=== PATIENT | female | born 1940 | race Caucasian/White ===

== ENCOUNTER 2018-03-13 15:28 | Outpatient (CLI) | payer MEDICARE, OTHER, SELFPAY ==
[2018-03-13 17:26] LABS: Hemoglobin A1C 7.3 % (4.5-6.2)
== END 2018-03-13 15:48 ==
PROVIDERS: PCP Family Medicine; Visit Provider Family Medicine
DX: E11.9 Type 2 diabetes mellitus without complications (principal)
CPT/HCPCS: 36415; 83036

== ENCOUNTER 2018-07-24 08:47 | Outpatient (CLI) | payer MEDICARE, OTHER, SELFPAY ==
[2018-07-24 12:24] LABS: ALT 86 U/L (12-78); AST 48 U/L (15-37); Albumin 3.8 g/dL (3.4-5.0); Alkaline Phosphatase 87 U/L (46-116); Anion Gap 12.8 mmol/L (3-11); BUN 19 mg/dL (7-18); Bilirubin, Total 0.6 mg/dL (0.2-1.0); CO2 25.2 mmol/L (21.0-32.0); CREATININE 0.89 mg/dL (0.55-1.02); Calcium 9.2 mg/dL (8.5-10.1); Chloride 102 mmol/L (98-107); Glucose 341 mg/dL (70-100); Potassium 4.1 mmol/L (3.5-5.1); Sodium 140 mmol/L (136-145); TSH (W/Ref FT4) 1.86 uIU/mL (0.358-3.74); Total Protein 6.8 g/dL (6.4-8.2)
[2018-07-24 12:28] LABS: Hemoglobin A1C 7.6 % (4.5-6.2)
[2018-07-24 13:06] LABS: Iron 87 ug/dL (50-175)
[2018-07-24 13:07] LABS: Calculated LDL 137; Cholesterol 214 mg/dL (50-200); HDL Cholesterol 53 mg/dL (40-60); Triglyceride 122 mg/dL (30-150)
== END 2018-07-24 09:07 ==
PROVIDERS: PCP Family Medicine; Visit Provider Family Medicine
DX: E11.9 Type 2 diabetes mellitus without complications (principal); I10 Essential (primary) hypertension; D64.9 Anemia, unspecified
CPT/HCPCS: 36415; 80053; 80061; 83721; 83036; 83540; 84443

== ENCOUNTER 2019-03-22 01:29 | Outpatient (CLI) | payer MEDICARE, OTHER, SELFPAY ==
[2019-03-22 14:46] LABS: Hemoglobin A1C 7.7 % (3.8-5.6)
== END 2019-03-22 01:49 ==
PROVIDERS: PCP Family Medicine; Visit Provider Family Medicine
DX: E11.9 Type 2 diabetes mellitus without complications (principal)
CPT/HCPCS: 36415; 82043; 82570; 83036

== ENCOUNTER 2019-04-02 02:03 | Outpatient (CLI) | payer MEDICARE, OTHER, SELFPAY ==
--- NOTE | 2019-04-02 10:00 | DI.RAD_ITS ---
EXAM: XR HIP LT COMPLETE AP PELVIS CLINICAL HISTORY: l hip pain M25.552 PAIN LT HIP TECHNIQUE: COMPARISON: BILATERAL HIPS ADULT from 10/25/2012 FINDINGS: Three views were obtained. There is marked loss of cartilaginous joint spaces of both hips, left gre ater than right. Prominent hypertrophic acetabular and femoral head changes noted bilaterally, left greater than right. Mild DJD of SI joints noted bilaterally. Severe hypertrophic degenerative castañeda es of lower lumbar spine noted. IMPRESSION: Severe DJD left hip, moderate DJD right.
== END 2019-04-02 02:23 ==
PROVIDERS: PCP Family Medicine; Visit Provider Family Medicine
DX: M25.552 Pain in left hip (principal); M16.0 Bilateral primary osteoarthritis of hip
CPT/HCPCS: 73502

== ENCOUNTER 2019-06-21 11:52 | Outpatient (CLI) | payer MEDICARE, OTHER, SELFPAY ==
--- NOTE | 2019-06-21 10:45 | DI.RAD_ITS ---
EXAM: XR PELVIS AP CLINICAL HISTORY: ARTEMIO surgical plannaing TECHNIQUE: COMPARISON: CR XR HIP LT COMPLETE AP PELVIS from 04/02/2019 FINDINGS: AP view of both hips was obtained. There is moderate degenerative change of the right hip and severe degenerative change of the left hip with marked narrowing of the cartilaginous joint spaces left gre ater than right. Prominent hypertrophic changes noted involving the acetabulum on the left and to a lesser degree on the right. IMPRESSION:
== END 2019-06-21 12:12 ==
PROVIDERS: PCP Family Medicine; Referring Provider Family Medicine; Visit Provider Student in an Organized Health Care Education/Training Program
DX: M25.552 Pain in left hip (principal); M16.12 Unilateral primary osteoarthritis, left hip; E11.8 Type 2 diabetes mellitus with unspecified complications; I10 Essential (primary) hypertension
CPT/HCPCS: 99203; 72170

== ENCOUNTER 2019-07-17 01:23 | Outpatient (CLI) | payer MEDICARE, OTHER, SELFPAY ==
[2019-07-17 11:02] LABS: Hemoglobin A1C 6.6 % (3.8-5.6)
[2019-07-17 11:57] LABS: ALT 81 U/L (14-59); AST 47 U/L (15-37); Albumin 4.6 g/dL (3.4-5.0); Alkaline Phosphatase 74 U/L (46-116); Anion Gap 14.7 mmol/L (3-11); BUN 22 mg/dL (7-18); Bilirubin, Total 0.7 mg/dL (0.2-1.0); CO2 24.3 mmol/L (21.0-32.0); CREATININE 1.07 mg/dL (0.55-1.02); Calcium 10.1 mg/dL (8.5-10.1); Chloride 102 mmol/L (98-107); Estimated GFR 49.86 (mL/min/1.73m2); Glucose 157 mg/dL (74-106); Potassium 4.2 mmol/L (3.5-5.1); Sodium 141 mmol/L (136-145); Total Protein 7.6 g/dL (6.4-8.2)
== END 2019-07-17 01:43 ==
PROVIDERS: PCP Family Medicine; Visit Provider Family Medicine
DX: I10 Essential (primary) hypertension (principal); E11.9 Type 2 diabetes mellitus without complications
CPT/HCPCS: 36415; 80053; 83036

== ENCOUNTER 2019-10-11 01:48 | Outpatient (CLI) | payer MEDICARE, OTHER, SELFPAY ==
[2019-10-13 17:57] LABS: COVID-19 RT-PCR Result NEGATIVE (Negative)
== END 2019-10-11 02:08 ==
PROVIDERS: PCP Family Medicine; Visit Provider Student in an Organized Health Care Education/Training Program
DX: M16.12 Unilateral primary osteoarthritis, left hip (principal); Z01.818 Encounter for other preprocedural examination
CPT/HCPCS: U0003

== ENCOUNTER 2019-10-11 01:48 | Outpatient (CLI) | payer MEDICARE, OTHER, SELFPAY ==
[2019-10-11 10:40] LABS: HCT 46.1 % (36.0-46.0); HGB 15.7 g/dL (11.2-15.7); MCHC 34.1 % (32.0-36.0); MPV 9.9 fL (8.0-11.0); Platelet Count 190 10^3/uL (130-400); RBC 5.24 10^6/uL (3.93-5.22); RDW 13.5 % (11.7-14.6); RDW-SD 42.9 fL; WBC 8.04 10^3/uL (4.4-10.8)
[2019-10-11 11:10] LABS: BUN 18 mg/dL (7-18); CREATININE 0.79 mg/dL (0.55-1.02); Chloride 104 mmol/L (98-107); Glucose 152 mg/dL (74-106); Potassium 4.2 mmol/L (3.5-5.1); Sodium 140 mmol/L (136-145)
== END 2019-10-11 02:08 ==
PROVIDERS: PCP Family Medicine; Visit Provider Student in an Organized Health Care Education/Training Program
DX: E11.9 Type 2 diabetes mellitus without complications (principal); M16.12 Unilateral primary osteoarthritis, left hip
CPT/HCPCS: 36415; 80048; 85027; 86850; 86900; 86901; U0003; 83036

== ENCOUNTER 2019-10-15 06:03 | Observation (INO) | payer MEDICARE, OTHER, SELFPAY ==
[2019-10-15] VITALS (13 sets, daily range): BP systolic 84–138; BP diastolic 37–83; PULSE 57–74; RESP 11–18; TEMP 35.7–36.6; O2SAT 92–99
--- NOTE | 2019-10-15 06:45 | DI.RAD_ITS ---
EXAM: XR HIP LT IN OR CLINICAL HISTORY: Primary osteoarthritis of left hip. TECHNIQUE: 2D and realtime digital imaging was performed. COMPARISON: No exams were available for comparison FINDINGS: Fluoroscopy was provided in the OR. Hard copy images show placement of a left hip prosthesis. Please see procedure note for details. Fluoro time: 38.1 seconds RADIATION DOSE DELIVERED:
[2019-10-15] MEDS: Celecoxib 200 MG CAP 400 MG PO (06:47)
[2019-10-15] MEDS: Acetaminophen 500 MG TAB 1000 MG PO ×3 (06:47→19:34)
--- NOTE | 2019-10-15 07:00 | HPE_ITS ---
Date of service: 10/15/19 Time of Service: 07:00 Assessment and Plan Assessment and plan (1) Primary osteoarthritis of left hip: Status: Chronic Assessment and plan: Gretchen is a 79-year-old who has known left hip arthritis. She is failed conservative options left hip. She is in the office for this pathology and does have a complete history and physical dated from September 10. She has had no changes in her health since that time. She continues to have pain with the left hip. I once again reviewed the surgery and its technical features as well. I discussed the risk to include bleeding, infection, pain, stiffness, damage to nerves and vessels, damage to muscle and tendon, leg length inequality, blood clot. She would like to proceed. She has had no changes to her health to preclude surgery today. History of Present Illness History of Present Illness Chief Complaint: Left Hip DJD Narrative: Gretchen is a 79-year-old who has known left arthritis. She was seen previously in the office discussed surgery and had a preoperative history physical performed 2 days ago. Unfortunately, On evaluation she reports no changes in her history since that visit just over a month ago. She had no issues with the toe. She denies fevers or chills. She denies chest pain or shortness of breath. She treat the pain with the left hip and ambulatory activities. She also has some worsening right hip pain. She denies numbness or tingling. She denies issues with the skin overlying the left hip. Review of Systems All systems reviewed & are unremarkable except as noted in HPI and below [facility] Medical History Depressive disorder (Chronic) w/ anxiety attacks; grief-loss of partner 2000 Diabetes mellitus (Chronic) Dysphonia (Chronic 11/28/13) Essential hypertension (Chronic 11/16/12) Gastroesophageal reflux disease with esophagitis (Chronic) Hyperlipidemia (Chronic 04/05/12) Increased BMI (Chronic) Lumbago (Chronic) Non-alcoholic fatty liver disease (Chronic 01/05/05) 4 small liver cysts.; elevated LFT's 01/13 Osteoarthritis (Chronic 04/30/07) hip Sensorineural hearing loss, bilateral (Chronic 06/13/13) Varicose veins of lower extremity (Chronic) Surgical History Hx of colonoscopy (Chronic) Hx of esophagogastroduodenoscopy (Chronic) Ligation of fallopian tube Status post arthroscopy of right knee (Acute) Family History Mother , 65+ Brain cancer Breast cancer Father , 65+ Bladder cancer Maternal Grandfather , Suicide Depression Paternal Grandfather , age 80? Throat cancer Maternal Grandmother Diabetes Paternal Grandmother Stroke Son Substance abuse PAST USE Alcohol abuse Daughter Alcohol abuse Depression Social History Smoking/Tobacco Use Status: Never Alcohol Intake: current Alcohol Intake frequency: 0-2 drinks per day Alcohol type: wine Drug use: Never Substance use type: former substance user and marijuana Adopted: No Caregiver/Support person: No Household members: none Housing: house Communication Needs: Hard of Hearing and Corrective Lenses Do you need help understanding health information?: Rarely Pets and animals: Yes Pets and animals: cat(s) Sexually active: No Do you think of yourself as: straight/heterosexual Current gender identity: female What is your relationship status?: How often do you talk on the phone with friends or family?: three or more times per week How often do you get together with friends or relatives?: once per week How often do you attend anglican or orthodox services?: decline to answer Do you belong to any clubs or organized social groups?: no Panel score (0-1 are the most socially isolated patients): 1 What type of physical activity do you participate in: walking and yoga Duration: 15-30 minutes/day Frequency: 1-2 times per week Brooke/Muslim: None Special brooke needs: No Seatbelt use: always Helmet use: No Drive 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 Meds Home Medications and Allergies Home Medications Medication Instructions Recorded Confirmed Type aspirin [Ecotrin] 81 mg PO DAILY tab-cap 04/27/12 10/15/19 History calcium carbonate-vitamin D3 2 tab PO DAILY 04/27/12 10/15/19 History [Caltrate 600 + D Tablet] psyllium [Metamucil] 1 tbs PO DAILY PRN 03/17/14 10/15/19 History Onetouch Ultra Test Strips 1 strip MISCELLANEOUS DAILY #100 09/07/17 10/15/19 Clinic strip meclizine 25 mg tablet 25 mg PO TID PRN #30 tab-cap 06/17/18 10/15/19 Rx lorazepam 0.5 mg tablet 0.5 mg PO BID PRN #30 tab-cap 06/18/18 10/15/19 Rx nystatin 100,000 unit/gram topical 1 applic TP TID #60 gm 10/16/18 10/15/19 Rx powder omeprazole 20 mg capsule,delayed 20 mg PO DAILY #90 tab-cap 01/10/19 10/15/19 Rx release canagliflozin 100 mg tablet 100 mg PO QAM #90 tab 03/28/19 10/15/19 Rx mirabegron 25 mg tablet,extended 25 mg PO DAILY #90 tab 03/28/19 10/15/19 Rx release 24 hr blood sugar diagnostic #100 each 06/24/19 10/15/19 Rx lancets #100 ea 06/24/19 10/15/19 Rx bupropion HCl 300 mg 24 hr tablet, 300 mg PO DAILY #90 tab-cap 07/22/19 10/15/19 Rx extended release atenolol 25 mg tablet 25 mg PO DAILY #90 tab 08/12/19 10/15/19 Rx metformin 750 mg tablet,extended 750 mg PO DAILY #90 tab-cap 08/12/19 10/15/19 Rx release 24 hr cephalexin 500 mg capsule 500 mg PO TID 09/12/19 10/15/19 History fluconazole 150 mg tablet 150 mg PO QWEEK #12 tab 09/19/19 10/15/19 Rx losartan 100 1 tab PO DAILY #90 tab-cap 10/08/19 10/15/19 Rx mg-hydrochlorothiazide 25 mg tablet sertraline 100 mg tablet 100 mg PO DAILY #90 tab 10/08/19 10/15/19 Rx multivitamin 1 tab PO DAILY 10/10/19 10/15/19 History ibuprofen 400 mg PO Q6H PRN 10/15/19 10/15/19 History Allergies Allergy/AdvReac Type Severity Reaction Status Date / Time No Known Allergies Allergy Unverified 10/15/19 06:19 Exam Const General: cooperative, healthy appearing, comfortable and no acute distress Nutritional Appearance: average body habitus Orientation: alert, awake and oriented x3 Resp Effort & Inspection: normal respiratory effort Auscultation: clear to auscultation bilaterally Cardio Rate: regular rate Rhythm: regular rhythm Skin General skin exam: no rashes or lesions noted Other: Left hip skin fold was inspected shows no signs of infection or maceration or open lesions. Results Last Vital Signs Temp 36.1 C L 10/15/19 06:42 Pulse 70 10/15/19 06:42 Resp 16 10/15/19 06:42 BP 138/83 10/15/19 06:42 Pulse Ox 96 10/15/19 06:42
[2019-10-15] MEDS: Lactated Ringers 1,000 ML 80 ML IV ×2 (07:05→19:37)
--- NOTE | 2019-10-15 07:12 | W.PM.DS.N ---
Date of service: 10/15/19 DS: Diagnosis Discharge Diagnosis (1) Primary osteoarthritis of left hip: Status: Chronic Discharge Plan Disposition Patient Disposition: HOME Condition: Good Discharge Details Reason For Visit: L HIP TOTAL Admit Date/Time: 10/15/19 06:03 Admit Provider: Dann Martinez Attending Provider: Dann Martinez Primary Care Provider: Sandra Baldwin [facility] Hospital Course Hospital Course: Patient was admitted to the medical/surgical floor following the procedure. The surgery was tolerated well without any notable medical, surgical, or anesthetic complications. Mobilization began postoperatively. She was voiding spontaneously. Vitals were stable. Physical therapy worked with the patient and was cleared for discharge home. No acute medical issues. Pain was controlled on oral regimen. Home Meds and New Rx's Prescriptions: New celecoxib 200 mg capsule 200 mg PO BID PRN (Reason: pain) Qty: 60 RF: 1 aspirin 81 mg tablet,delayed release (DR/EC) 81 mg PO BID Qty: 60 RF: 0 acetaminophen 500 mg tablet 1,000 mg PO Q8H PRN (Reason: pain) Qty: 90 RF: 3 docusate sodium [Colace] 100 mg capsule 100 mg PO BID PRNQty: 10 RF: 0 oxycodone 5 mg tablet 2.5 - 5 mg PO Q6H PRN PRNQty: 6 RF: 0 Continued canagliflozin 100 mg tablet 100 mg PO QAM Qty: 90 RF: 5 Myrbetriq 25 mg tablet extended release 24 hr 25 mg PO DAILY Qty: 90 RF: 4 bupropion HCl 300 mg tablet extended release 24 hr 300 mg PO DAILY Qty: 90 RF: 12 calcium carbonate-vitamin D3 [Caltrate with Vitamin D3] 1 EACH tablet 2 tab PO DAILY RF: 0 Metamucil 283 GM powder 1 tbs PO DAILY PRNRF: 0 ONETOUCH ULTRA TEST STRIPS 1 EACH strip 1 strip Miscellaneous DAILY Qty: 100 RF: 3 meclizine 25 mg tablet 25 mg PO TID PRN (Reason: dizziness) Qty: 30 RF: 0 lorazepam 0.5 mg tablet 0.5 mg PO BID PRN (Reason: anxiety) Qty: 30 RF: 2 nystatin 100,000 unit/gram powder 1 applic TP TID Qty: 60 RF: 3 omeprazole 20 mg capsule,delayed release(DR/EC) 20 mg PO DAILY Qty: 90 RF: 4 (DME) lancets [OneTouch UltraSoft Lancets] Misc 1 ea Miscellaneous DAILY Qty: 100 RF: 4 (DME) Blood Glucose Test Strip See Rx Instructions .ROUTE .MEDSUPPLY Qty: 100 RF: 5 atenolol 25 mg tablet 25 mg PO DAILY Qty: 90 RF: 4 metformin 750 mg tablet extended release 24 hr 750 mg PO DAILY Qty: 90 RF: 12 fluconazole 150 mg tablet 150 mg PO QWEEK Qty: 12 RF: 2 losartan-hydrochlorothiazide [Hyzaar] 100-25 mg tablet 1 tab PO DAILY Qty: 90 RF: 3 sertraline 100 mg tablet 100 mg PO DAILY Qty: 90 RF: 4 multivitamin Tablet 1 tab PO DAILY RF: 0 Discontinued cephalexin 500 mg capsule 500 mg PO TID RF: 0 aspirin [Ecotrin Low Strength] 81 MG tablet,delayed release (DR/EC) 81 mg PO DAILY RF: 0 ibuprofen 400 mg Tablet 400 mg PO Q6H PRNRF: 0 Discharge Instructions Additional Instructions: Dr. Martinez's Total Hip Discharge Instructions Activity: The most important activity is to walk. You should try to take short walks a few times a day. You have no restrictions on movement or positioning, but do not try to force what you do. You will find some stiffness and weakness with hip flexion (lifting your knee). Do not try to strengthen this too early, continue to practice walking and stairs and this will come. - Outpatient physical therapy can be helpful to help return you to a normal gait and improve your flexibility and strength. This can start around 2 weeks. For most patients, it?s not necessary. Usually this is determined at the time of discharge or at the first post-operative visit. - You should wear the HARPREET hose on both legs for 2 weeks. You may remove those at night. These prevent blood pooling and swelling. Dressing: Keep the surgical dressing in place for at least one week, although it may stay in place untill follow-up. It may get wet after 3 days but avoid soaking the dressing. If it gets wet, just lightly pat dry. Most people prefer to cover the dressing with some ClingWrap, Saran Wrap, to keep it dry. After the first week it may be removed if desired and then replaced with light gauze and tape or nothing. It is important to always keep some gauze or the dressing between skin folds, especially when you are sitting, so the incision is not folded over on itself at the belly fold. Medications: - You should take Tylenol and an anti-inflammatory Celebrex as your primary pain control medications. If Celebrex is too expensive, or not covered, please take Ibuprofen 400-600mg every 8 hours. - You have been prescribed a stronger pain medication Oxycodone for breakthrough pain, take as needed as prescribed. You may halve this tablet. - You should continue your Omeprazole to help reduce stomach acid and reflux. - You will be taking Aspirin 81mg twice a day for DVT prevention unless instructed otherwise. - If you have constipation you should take Colace or Miralax (both [id number]). It takes most people 3-4 days to have a bowel movement. Follow-up: 2 weeks. If you have any acute concerns or questions, please do not hesitate to contact the office at [phone]. You may contact Dr. Martinez with any questions after hours through the hospital at [phone] or on his cell phone at [phone]. Referrals: Dann Martinez MD [ [facility] STAFF PHYSICIAN] - Activity:: Activity as Tolerated Equipment/Supplies:: Walker Diet:: Carb Counting Discharge Orders Discharge Orders: Discharge Order (Routine); Ordered 10/16/19 Ordered By: Dann Martinez DS: Summary Status at Discharge Functional status at discharge: uses cane/walker Overall status at discharge: patient is progressing back to baseline Mental Status: mental status grossly normal Speech and Movement: speech and movement normal Mood: congruent mood Affect: normal affect Exam Psych Mental Status: mental status grossly normal Speech and Movement: speech and movement normal Mood: congruent mood Affect: normal affect DS: Data Vitals/I&O Vitals and I&O: Vital Signs Temperature 36.1 C L 10/15/19 06:42 Pulse 70 10/15/19 06:42 Pulse Rhythm Regular 10/15/19 06:42 Respiratory Rate 16 10/15/19 06:42 Respiratory Effort 10/15/19 06:42 Respiratory Depth Normal 10/15/19 06:42 Respiratory Pattern Normal 09/08/20 06:42 Blood Pressure 138/83 10/15/19 06:42 Pulse Oximetry 96 10/15/19 06:42 Oxygen Delivery Method Room Air 10/15/19 06:42 Oxygen Flow Rate 0 10/15/19 06:42 Pain Level 5 10/15/19 06:42 Intake & Output 10/14/19 10/14/19 10/15/19 11:59 23:59 11:59 Weight 86.6 kg [facility] Medical History Depressive disorder (Chronic) w/ anxiety attacks; grief-loss of partner 2000 Diabetes mellitus (Chronic) Dysphonia (Chronic 11/28/13) Essential hypertension (Chronic 11/16/12) Gastroesophageal reflux disease with esophagitis (Chronic) Hyperlipidemia (Chronic 04/05/12) Increased BMI (Chronic) Lumbago (Chronic) Non-alcoholic fatty liver disease (Chronic 01/05/05) 4 small liver cysts.; elevated LFT's 01/13 Osteoarthritis (Chronic 04/30/07) hip Sensorineural hearing loss, bilateral (Chronic 06/13/13) Varicose veins of lower extremity (Chronic) Surgical History Hx of colonoscopy (Chronic) Hx of esophagogastroduodenoscopy (Chronic) Ligation of fallopian tube Status post arthroscopy of right knee (Acute) Family History Mother , 65+ Brain cancer Breast cancer Father , 65+ Bladder cancer Maternal Grandfather , Suicide Depression Paternal Grandfather , age 80? Throat cancer Maternal Grandmother Diabetes Paternal Grandmother Stroke Son Substance abuse PAST USE Alcohol abuse Daughter Alcohol abuse Depression Social History Smoking/Tobacco Use Status: Never Alcohol Intake: current Alcohol Intake frequency: 0-2 drinks per day Alcohol type: wine Drug use: Never Substance use type: former substance user and marijuana Adopted: No Caregiver/Support person: No Household members: none Housing: house Communication Needs: Hard of Hearing and Corrective Lenses Do you need help understanding health information?: Rarely Pets and animals: Yes Pets and animals: cat(s) Sexually active: No Do you think of yourself as: straight/heterosexual Current gender identity: female What is your relationship status?: How often do you talk on the phone with friends or family?: three or more times per week How often do you get together with friends or relatives?: once per week How often do you attend sabianism or zoroastrian services?: decline to answer Do you belong to any clubs or organized social groups?: no Panel score (0-1 are the most socially isolated patients): 1 What type of physical activity do you participate in: walking and yoga Duration: 15-30 minutes/day Frequency: 1-2 times per week Brooke/Confucianism: None Special brooke needs: No Seatbelt use: always Helmet use: No 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
[2019-10-15] MEDS: ceFAZolin 2 GM/50 ML BAG IVPB (07:45)
[2019-10-15] MEDS: Bupivacaine 0.25% Pres-Free 30 ML VIAL (08:25)
[2019-10-15] MEDS: Ketorolac 30 MG/ML VIAL (08:26)
--- NOTE | 2019-10-15 09:22 | W.PM.OP ---
Date of service: 10/15/19 Time of Service: 09:22 Operative Note Operative Note DATE OF PROCEDURE: 10/15/19 PRE-OP DIAGNOSIS: Left Hip Osteoarthritis POST-OP DIAGNOSIS: same PROCEDURE: Left Anterior Total Hip Arthroplasty SURGEON: Dann Martinez ONCOLOGY ADMIN: Sandy Thompson ANESTHESIA: spinal ESTIMATED BLOOD LOSS: 200 PATHOLOGY: none sent TOURNIQUET TIME: 0 COMPLICATIONS: None Patient was transported to: PACU Patient's condition: stable Implants: 1. Depuy Torrance Acetabular Component, 52mm 2. Depuy Acetabular Liner, [id number] 3. Depuy Corail Short Neck Femoral Stem, Size 12 4. Depuy Altrx Ceramic Femoral Head, Size 36+8.5mm Indications: I have seen Gretchen in clinic for symptoms of hip arthritis, confirmed with radiographic findings. Gretchen has exhausted nonoperative methods and was having significant limitations in daily function and desired better function and less pain. I discussed the technical details of a hip replacement. I explained the risks of the procedure to include, but not limited to, bleeding, infection, pain, stiffness, fracture, damage to nerves and vessels, damage to muscles and tendons, loosening, instability, leg length inequality, need for repeat procedure, blood clot and cardiopulmonary demise. Despite these risks, [NAME] elected to proceed. Findings: There was significant signs of arthritis throughout the hip with large, irregular femoral neck osteophytes and acetabular chondromalacia. Procedure Description: Gretchen was greeted in the preoperative holding area where the correct side was identified and marked. The consent was reviewed with the patient and signed. The history and physical was updated. All questions were answered. She was taken back to the operating room. A spinal anesthestic was then administered. The patient was placed into the supine position on the operating room table. The patient was then positioned onto the ARCH table. Both feet were wrapped with Webrill cotton wrap along with Coban. The feet were placed in specialized boots for the ARCH table, well seated within the boot and secured. SCDs were applied. The patient was then slid down onto a peroneal post and the nonoperative leg was secured in a leg gallo attached to the table. The operative side was placed into the ARCH table attachment and bed height and positioning was secured. A preoperative AP pelvis was obtained to serve as a reference for determining leg lengths. Prophylactic antibiotics in the form of Cefazolin were administered. 1g of Tranxemic Acid was given intravenously within 30 minutes of incision. The left leg was then prepped with Chloraprep and draped in a standard fashion. A second prep with Chloraprep was performed prior to placement of a shower-curtain type drape with Iodine impregnated skin protection. A timeout to confirm correct identity, side and site, procedure, allergies, anesthesia, and medical concerns was performed. An obliquely oriented incision was made starting lateral to the ASIS and running distal over the Tensor Fascia Blaire (TFL) muscle belly toward the fibular head, approximately 10cm. The skin and soft tissue was dissected sharply, through Elizabeth?s fascia, and to the fascia of the TFL. With the fascia and superior border of the IT band identified, the fascia was incised with a new knife just above any perforators from the IT band. The TFL muscle belly was bluntly dissected away from the fascia and moved laterally. The fat between TFL and rectus was identified to ensure the dissection was not within the TFL. Blunt dissection created space between abductors and the capsule and retractor was placed over the lateral femoral neck. The fibers of the rectus femoris tendon were identified and these were freed from the anterior capsule. A second cobra retractor was placed around the medial femoral neck. The TFL was further retracted laterally to show the deep fascia. Careful dissection through this layer identified three main crossing vessels of the lateral femoral circumflex. These were cauterized in multiple locations and then cut without any noticeable bleeding. The TFL was further released bluntly from the deep fascia to expose anterior hip capsule and fat The Thomas orthopaedic retractor was then placed beneath the TFL and against sartorius and medial soft tissues to protect and retract the soft tissues. A T-capsulotomy was then performed starting at the superior lateral acetabulum and moving distally to the intertrochanteric ridge. These capsular flaps were tagged with a No. 1 Ethibond and elevated from within. The capsular flaps were released to the shoulder of the lateral neck and to the lesser trochanter to give excellent visualization of the proximal femur. A neck osteotomy was performed using an oscillating saw based on preoperative templates. This cut started in the shoulder and of the lateral neck and exited medially. The saw was at all times directed medially to avoid injury to the greater trochanter. 6cm of traction was applied to the leg and the osteotomy opened. The femoral head was removed with a corkscrew, making sure to protect the TFL on its exit. This was measured on the back table to determing the starting reamer size. Portions of the rectus obscuring visualization were minimally elevated off the superior acetabulum. An anterior retractor was placed over the anterior wall between capsule and labrum and attached to the Gripper retraction system. A posterior retractor was placed similarly. This provided excellent visualization. The contents of the cotyloid fossa were removed with electrocautery and the labrum was removed with a knife. There was a notable floor osteophyte. There was significant chondromalacia of the superior acetabulum. Acetabular reaming began with a 48mm reamer. This first reaming was directed anterior to posterior and medial to get down to the true floor. This was inspected and reamed until the true floor was reached. The anterior retractor was then released and entry and exit was provided by traction on the capsular flaps. I then reamed sequentially up to a 52mm reamer where good fit was obtained. The larger reamers were oriented based on anatomical reference of the anterior and lateral mendez to ensure proper abduction and anteversion. Positioning and size was confirmed with the fluoroscopy. A 52mm Depuy Torrance acetabular component was selected. The acetabulum was reamed around the periphery with the selected acetabular size to prevent a rim fit. The deep tissues were irrigated. The acetabular component was then impacted in a position of about 40-45 degrees of abduction and 15-20 degrees of anteversion, using the patient?s anatomy as the ultimate landmark. Fluoroscopy was used to confirm this. There was excellent sales representative church furniture of the acetabular component and the inserting handle was removed. The acetabular liner, Depuy [id number] polyethylene liner, was inserted and lined up with the tines of the acetabular component. There was no soft tissue interposition. The liner was then impacted into position and confirmed to be well-seated. A portion of the diamante-articular cocktail was then injected around the acetabulum into the capsule and periosteum. This cocktail consisted of 50cc of 0.25% Bupivicaine and 20cc of Exparel, expanded to a total of 120cc. Traction was released from the femur. The leg was rotated to 120 degrees. Any remaining medial capsule was released until the lesser trochanter was easily palpable. A Le retractor was placed medially. The lateral capsule was further released into the shoulder to allow access to the greater trochanter. A Le retractor was placed over the greater trochanter which allowed the trochanter to flip in front of the capsule for excellent exposure. The leg was brought down into maximal extension and 20 degrees of adduction while ensuring there was no impingement on the acetabulum. Any remnant capsule within the trochanter was released. Piriformis and obturator externis were identified and protected. There was excellent access to the proximal femur. The lateral neck remnant was removed with a rongeur. A blunt canal probe was used to identify the canal and trajectory for later broaching. A box osteotome initiated the broach course. A small curved rasp and a curved curette were used to work laterally. Broaching then began with a size 8 Corail broach. This was inserted manually around the trochanter and into the canal before mallet blows. The broach was seated to the neck cut level based on the neck cut and the preoperative template. Sequential broaching was continued with the KochAbo pneumatic broaching device until a tight fit was obtained with good rotational control of the femur. A trial standard short neck was inserted along with a +5 trial head. The leg was brought out of extension and adduction and then reduced with traction and internal rotation. The leg was stable anteriorly in a position of 30 degrees of extension and 90 degrees of external rotation. Fluoroscopy was used to ensure there was no fracture and the stem was seated well. Leg lengths were checked with an AP pelvis and pelvic reference points. Adku navigation system was used to confirm appropriate positioning and leg length and offset. There was a slight under recreation of offset and leg length, so I proceeded with a +8.5 head. Once content with the desired offset and leg lengths, the leg was brought back into extension, external rotation and adduction. The periosteum and surrounding tissue was injected with remaining portion of the diamante-articular cocktail. The proximal femur was irrigated as well as the deep tissues. The Depuy Corail standard short neck collared stem, size 12, was then manually inserted into the proximal femur making sure to control rotation. It was then malleted into position with light blows, giving breaks to allow bone expansion and decrease risk of fracture. The selected Depuy Altrx Ceramic Head, size 36+8.5mm, was then placed onto the clean and dry trunnion and secured with impaction onto the tapered fit. The leg was brought back out of extension and adduction and reduced with traction and internal rotation. Stability was confirmed with no shuck at 90 degrees of external rotation and 30 degrees of extension. No impingement through range of motion arc. Final x-ray images were obtained with fluoroscopy to confirm adequate positioning and no intraoperative fracture. The deep tissues were thoroughly irrigated with Irrisept chlorhexadine solution. The second dose of TXA 1g was administered intravenously.The capsule was then reapproximated with the previously placed Ethibond sutures. The TFL fascia was finally closed with a No. 2 Stratafix, barbed suture. Deep tissues were then reapproximated with 0 Vicryl and a running 2-0 Vicryl. The skin was closed with a running 4-0 Monocryl in a subcuticular fashion. This was reinforced with skin glue. A Mepilex silver dressing was applied. At the end of the case, all counts were correct. Gretchen was transferred to the hospital bed without difficulty and suffering no apparent complication. Gretchen has a good prognosis. Physical therapy will start today and without restrictions, weight-bearing as tolerated. Aspirin 81mg BID will be used for DVT prophylaxis.
[2019-10-15] MEDS: Lactated Ringers 1,000 ML 30 ML IV (09:54)
--- NOTE | 2019-10-15 11:30 | PT.INIE ---
Date of service: 10/15/19 Time of Service: 11:30 PT Notes Visit Reasons: L HIP TOTAL Physical Therapy Inpatient Initial Evaluation Date: 10/15/2019 Referring Doctor: Dann Martinez MD PT Orders: PT CONSULT: Status post Ortho surgery. Status post left ARTEMIO Precautions: Fall. Standard. WBAT on left LE. Patient Profile/Admitting Diagnosis: Gretchen is a 79-year-old female with primary unilateral osteoarthritis of the left hip and is status post left total hip arthroplasty on postoperative day 0. PMHX: Medical History Depressive disorder (Chronic) w/ anxiety attacks; grief-loss of partner 2000 Diabetes mellitus (Chronic) Dysphonia (Chronic 11/28/13) Essential hypertension (Chronic 11/16/12) Gastroesophageal reflux disease with esophagitis (Chronic) Hyperlipidemia (Chronic 04/05/12) Increased BMI (Chronic) Lumbago (Chronic) Non-alcoholic fatty liver disease (Chronic 01/05/05) 4 small liver cysts.; elevated LFT's 01/13 Osteoarthritis (Chronic 04/30/07) hip Sensorineural hearing loss, bilateral (Chronic 06/13/13) Varicose veins of lower extremity (Chronic) Surgical History Hx of colonoscopy (Chronic) Hx of esophagogastroduodenoscopy (Chronic) Ligation of fallopian tube Status post arthroscopy of right knee (Acute) Social History/Home Situation: Lives alone in a private home with 1 step to enter without a rail. Has a flight of steps to the second floor of her house and another flight to the cellar. She states today on the main floor of the house as she recovers and will have the help of her relatives who live across from her for anything that she needs. Equipment Owned/DME: None Subjective: Reports minimal discomfort in the left hip with bed mobility. Complained of being clammy and dizzy upon sitting up and standing up from edge of bed for mobility assessment. Objective: General Observation: IV in the right UE. Mepilex Ag over surgical incision. Bilateral TEDS to legs. Mental Status: Alert and oriented times four 1/10 in the left hip Pain: 1/10 in the L hip with movement Vital Signs: After standing up 84/30 4 mmHg, 52 bpm, and 94% on room air ROM: Right Upper Extremity: Shoulder Flexion WFL. Shoulder abduction WFL. Elbow flexion WFL. Wrist flexion WFL. Opening and closing of hand WFL. Left Upper Extremity: Shoulder Flexion WFL. Shoulder abduction WFL. Elbow flexion WFL. Wrist flexion WFL. Opening and closing of hand WFL. Right Lower Extremity: Hip flexion WFL. Hip abduction WFL. Knee flexion WFL. Ankle dorsiflexion WFL. Ankle plantarflexion WFL. Left Lower Extremity: Hip flexion WFL. Hip abduction WFL. Knee flexion WFL. Ankle dorsiflexion WFL. Ankle plantarflexion WFL. Strength: Right Upper Extremity: Shoulder flexors 5/5. Shoulder abductors 5/5. Elbow flexors 5/5. Elbow extensors 5/5. Signal And Communications Maintainer strong. Left Upper Extremity: Shoulder flexors 5/5. Shoulder abductors 5/5. Elbow flexors 5/5. Elbow extensors 5/5. Signal And Communications Maintainer strong. Right Lower Extremity: Hip flexors 4/5. Hip abductors 4/5. Knee flexors 5/5. Knee extensors 4/5. Ankle dorsiflexors 5/5. Ankle plantarflexors 5/5. Left Lower Extremity:Hip flexors 5/5. Hip abductors 5/5. Knee flexors 5/5. Knee extensors 5/5. Ankle dorsiflexors 5/5. Ankle plantarflexors 5/5. Sensation: Intact as to pain and pressure on bilateral lower extremities. Bed Mobility/Transfers: Supine to sit standby assist Sit to supine standby assist Sit to stand contact-guard assist Stand to sit contact-guard assist Bed to chair deferred due to hypotensive episode. Will assess in the next session. Chair to bed deferred m due to hypotensive episode. Will assess in the next session. Gait: Deferred due to hypotensive episode. Will assess in the next session. Balance: Static Sitting: Normal Dynamic Sitting: Normal Static Standing: Fair Dynamic Standing: Unable to assess Special Tests: Mobility Limitations Standardized Measure [facility] AM-PAC 6 clicks Basic Mobility Inpatient Short Form: Raw Score: 1365% deficit CMS Score: 65% deficit Informed Consent/Education: Patient instructed in purpose of PT consult and plan of care. Assessment: Gretchen demonstrates significant functional mobility decline requiring the use of a front wheeled walker for all mobility ADL performance, difficulty with walking, impairment in balance, increased risk for falls due to postoperative status. Gretchen is a 79-year-old female with primary unilateral osteoarthritis of the left hip and is status post left total hip arthroplasty on postoperative day 0. Patient presents with clinical signs and symptoms consistent with current/admitting diagnoses that have resulted to mobility limitations, gait instability, generalized weakness, and impairment of motor control as demonstrated by the following impairment level findings: 1. Decreased strength to left hip major muscle groups 2. Impaired sitting/standing balance 3. Impaired activity tolerance 4. Hypotensive episode due to mobility assessment Impairments are contributing to the following functional limitations: 1. Dependent bed mobility skills 2. Increased dependence with transfers 3. Inability to safely ambulate without assistive device and physical assistance 4. Increase completion time for mobility ADL performance 5. Increased fall risk 6. Inability to negotiate steps alone safely Patient is assessed as a complexity based on the following: History: 79-year-old female with impairment level findings, functional limitations, and past medical history as indicated above Examination: Demonstrable impairment in strength, balance, and mobility level with underlying impairments and functional limitations as documented above Presentation:Evolving Decision Makin moderate complexity Goals: Goals X 1 day 1. Supine-Sit independent 2. Sit-Supine independent 3. Sit-Stand independent 4. Stand-Sit independent 5. Bed-Chair independent 6. Chair-Bed independent 7. Independent gait on level surface with use of least restrictive device for at least 300 feet without report of pain nor dyspnea 8. Independent stair negotiation while holding onto bilateral rails for at least 10 steps without report of pain nor dyspnea 9. Independent with home exercise program 10. Good static and dynamic standing balance/tolerance Plan of Care/Treatment Plan: 1-2x/day for 1 day. Plan of care has been reviewed with the SLASHER MACHINE OPERATOR providing the service under Physical Therapy direction. Initiate Physical Therapy intervention for strengthening, bed mobility, transfers, gait, stairs, balance training, use of assistive device. DISCHARGE RECOMMENDATIONS: Home when medically cleared by orthopedic surgeon outpatient PT services as recommended in order to regain prior independent mobility level. TREATMENT CODE/TIME: 75521 x 30 minutes beginning at 11:30 AM. Thank you for the opportunity to participate in the care of this patient. Barbara Garnica PT, DPT, CLT [facility], [place]
--- NOTE | 2019-10-15 12:10 | NUR.NOTE ---
Nursing Note: 10/15/2019 12:10 Physical therapist Barbara Garnica reported to authoring nurse that when she tried to help patient out of bed, patient became clammy and feeling like she was going to pass out. Physical therapist assisted patient back to supine position in bed. Vital signs are: Temp 36.3 C, Pulse 63, BP 90/62 manual, O2 92 on room air. Charge nurse notified of situation and vital signs. Nurse encouraged patient to practice deep breathing and continue drinking water, nurse will continue to monitor and reassess as necessary. Patient is currently sitting up in bed eating lunch.
--- NOTE | 2019-10-15 14:50 | PTTR_ITS ---
Date of service: 10/15/19 Time of Service: 14:50 PT Notes Visit Reasons: L HIP TOTAL Physical Therapy Inpatient Initial Evaluation Date: 10/15/2019 Precautions: Fall. Standard. WBAT on left LE. Subjective: Denies dizziness and lightheadedness throughout the afternoon session. Objective: General Observation: IV in the right UE. Mepilex Ag over surgical incision. Bilateral TEDS to legs. Mental Status: Alert and oriented times four 1/10 in the left hip Pain: 1/10 in the L hip with movement Bed Mobility/Transfers: Supine to sit standby assist Sit to supine standby assist Sit to stand standby assist Stand to sit standby assist Bed to chair standby assist Gait: 80 feet using front wheeled walker with WBAT on the left LE requiring only contact-guard assist and wheelchair follow of PT. Step-to gait pattern with decreased iesha and report of 3?4/10 in the left hip that subsided with rest. No complaints of dizziness nor clamminess throughout. Blood pressure with sitting is 110-54 mmHg heart rate 70 bpm and oxygen saturation of 94% on room air. THERA EX: Tolerated seated level exercises consisting of unilateral knee-chest x10, gluteal sets x10, quadriceps sets x10, and ankle pumping x 20 with good response. Balance: Static Sitting: Normal Dynamic Sitting: Normal Static Standing: Fair Dynamic Standing: Unable to assess Assessment: Gretchen performed significantly better in the second session with good tolerance to ambulation distance without any report of dizziness nor lightheadedness. She will contnue to benefit from skilled services to faciliate a smoother transition to home. Plan of Care/Treatment Plan: 1-2x/day for 1 day. Plan of care has been reviewed with the GUARD LIEUTENANT providing the service under Physical Therapy direction. Initiate Physical Therapy intervention for strengthening, bed mobility, transfers, gait, stairs, balance training, use of assistive device. DISCHARGE RECOMMENDATIONS: Home when medically cleared by orthopedic surgeo. Outpatient PT services as recommended in order to regain prior independent mobility level. TREATMENT CODE/TIME: 01285 x 15 minutes, 88800 x 15 minutes beginning at 14:50 PM.
[2019-10-15] MEDS: ceFAZolin 1 GM/50 ML BAG IVPB ×2 (15:50→23:49)
[2019-10-15] MEDS: Celecoxib 200 MG CAP PO (19:33)
[2019-10-15] MEDS: Aspirin E.C. 81 MG TABEC PO (19:33)
[2019-10-16] MEDS: Losartan 50 MG TAB 100 MG PO (07:48)
[2019-10-16] MEDS: buPROPion-XL 150 MG TABCR 300 MG PO (07:48)
[2019-10-16] MEDS: Celecoxib 200 MG CAP PO (07:48)
[2019-10-16] MEDS: Aspirin E.C. 81 MG TABEC PO (07:48)
[2019-10-16] MEDS: Atenolol 25 MG TAB PO (07:48)
[2019-10-16] MEDS: Multivitamin TAB 1 TAB PO (07:48)
[2019-10-16] MEDS: Omeprazole 20 MG CAPCR PO (07:48)
[2019-10-16] MEDS: ceFAZolin 1 GM/50 ML BAG IVPB (07:49)
[2019-10-16] MEDS: Mirabegron 25 MG TABCR PO (07:49)
[2019-10-16] MEDS: Sertraline 50 MG TAB 100 MG PO (07:49)
[2019-10-16] MEDS: Acetaminophen 500 MG TAB 1000 MG PO (07:49)
[2019-10-16 08:06] VITALS: BP 132/69; PULSE 77; RESP 18; TEMP 36.7; O2SAT 96
[2019-10-16] MEDS: Insulin Aspart 300 UNITS/3 ML PEN SC (08:21)
--- NOTE | 2019-10-16 08:37 | PT.INTREAT ---
Date of service: 10/16/19 Time of Service: 08:37 PT Notes Visit Reasons: L HIP TOTAL Inpatient Physical Therapy Treatment Note [facility] Date: 10/16/2019 PRECAUTIONS: Fall, WBAT L SUBJECTIVE: Gretchen states that she is feeling a little more sore today, although she states that she feels ready to be discharged to home today. OBJECTIVE: PAIN: Patient c/o L hip discomfort with ther ex and gait training BED MOBILITY/TRANSFERS Supine-sit: I with HOB flat Sit-supine: I with HOB flat Sit-stand: S Stand-sit: S Bed-Chair: S Chair-bed: S GAIT Assistive Device: FWW Weight bearing: WBAT L Assist: S Distance: 250' Deviation: Step-through gait pattern following instruction THEREX: Patient completed a LE strengthening program, in a seated position, as per flow sheet. Patient requires verbal cueing for proper exercise performance. STAIRS: Up/down 3x4 and 2x6 using B rails and a step-to pattern with supervision ASSESSMENT: Patient tolerated session with minimal complaint of L hip discomfort with ther ex and gait training. She was able to tolerate the addition of stair training. She would benefit from continued LE strengthening and gait training to return to baseline level of function at an independent level. PLAN: Continue with global strengthening and gait training TREATMENT CODE/TIME: 30 minutes; 02237, 37411
--- NOTE | 2019-10-16 09:29 | PDOC.CMIN ---
- If Service Date Differs Date of service: 10/16/19 Time of Service: 09:29 Care Management Initial Assess REASON FOR HOSPITALIZATION:: Primary osteoarthritis of left hip PAST MEDICAL HISTORY/PAST SURGICAL HISTORY:: Medical History . Depressive disorder (Chronic). w/ anxiety attacks; grief-loss of partner 2000. Diabetes mellitus (Chronic). Dysphonia (Chronic 11/28/13). Essential hypertension (Chronic 11/16/12). Gastroesophageal reflux disease with esophagitis (Chronic). Hyperlipidemia (Chronic 04/05/12). Increased BMI (Chronic). Lumbago (Chronic). Non-alcoholic fatty liver disease (Chronic 01/05/05). 4 small liver cysts.; elevated LFT's 01/13. Osteoarthritis (Chronic 04/30/07). hip. Sensorineural hearing loss, bilateral (Chronic 06/13/13). Varicose veins of lower extremity (Chronic). Surgical History . Hx of colonoscopy (Chronic). Hx of esophagogastroduodenoscopy (Chronic). Ligation of fallopian tube. Status post arthroscopy of right knee (Acute) PREVIOUS FUNCTIONAL STATUS/SOCIAL/FAMILY SUPPORTS:: Gretchen lives alone in a single family home in [place], [place]. She has 2 children and 4 grandchildren who are very supportive. Her son Kesha lives just up the road from her and is very helpful. Gretchen is independent at baseline and continues to drive. CURRENT FUNCTIONAL STATUS:: Gretchen was sitting up in a chair when CM met with her. She was pleasant and engaged readily with CM. Gretchen stated that she will be discharged later today and the she plans to have outpatient PT when able. She shared that she feels that she has been getting weeaker with the lack of exercise during the Covid pandemic and can really benefit from the therapy. ADVANCE DIRECTIVES:: None on file Has patient been provided with info about the portal/API?: Yes Did the patient sign up for the portal?: Yes (recently) CODE STATUS:: Full Code INSURANCE COVERAGE / FINANCIAL ISSUES:: Medicare. [employer] U IDs only CURRENT HOME/COMMUNITY SERVICES/EQUIPMENT:: Gretchen has a walker and a cane at home PRIMARY CARE PHYSICIAN:: Sandra Baldwin POTENTIAL DISCHARGE NEEDS:: Follow up with PCP and discharge plan of care PATIENT/FAMILY EDUCATION NEEDS:: Discharge plan, limitations, follow up plan, Ask Me Three TRANSPORTATION:: via private vehicle with family PLAN:: Gretchen will be discharged home with no new home services. She will follow up with her surgeon, PCP and discharge plan of care. Gretchen will likely have outpatient PT when she is surgically ready per her provider and will transport via private vehicle with family.
--- NOTE | 2019-10-17 08:16 | INDS_ITS ---
Date of service: 10/17/19 PT Notes Visit Reasons: L HIP TOTAL Inpatient Physical Therapy Discharge Summary Dates: 10/17/2019 Dates of Service: 10/15/2019 through 10/16/2019 This is a clinical summary of care provided on the duration of dates listed above. No charge was made in the completion of this documentation. Precautions: Fall. Standard. WBAT on left LE. Patient Profile/Admitting Diagnosis: Gretchen is a 79-year-old female with primary unilateral osteoarthritis of the left hip and is status post left total hip arthroplasty on postoperative day 1. PMHX: Medical History Depressive disorder (Chronic) w/ anxiety attacks; grief-loss of partner 2000 Diabetes mellitus (Chronic) Dysphonia (Chronic 11/28/13) Essential hypertension (Chronic 11/16/12) Gastroesophageal reflux disease with esophagitis (Chronic) Hyperlipidemia (Chronic 04/05/12) Increased BMI (Chronic) Lumbago (Chronic) Non-alcoholic fatty liver disease (Chronic 01/05/05) 4 small liver cysts.; elevated LFT's 01/13 Osteoarthritis (Chronic 04/30/07) hip Sensorineural hearing loss, bilateral (Chronic 06/13/13) Varicose veins of lower extremity (Chronic) Surgical History Hx of colonoscopy (Chronic) Hx of esophagogastroduodenoscopy (Chronic) Ligation of fallopian tube Status post arthroscopy of right knee (Acute) Social History/Home Situation: Lives alone in a private home with 1 step to enter without a rail. Has a flight of steps to the second floor of her house and another flight to the cellar. She states today on the main floor of the house as she recovers and will have the help of her relatives who live across from her for anything that she needs. Equipment Owned/DME: None Subjective: NT. See most recent ENVIRONMENTAL SCIENCE TECHNICIAN notes. Objective: General Observation: NT. See most recent ENVIRONMENTAL SCIENCE TECHNICIAN notes. Mental Status: NT. See most recent ENVIRONMENTAL SCIENCE TECHNICIAN notes. Pain: NT. See most recent ENVIRONMENTAL SCIENCE TECHNICIAN notes. ROM: Right Upper Extremity: Shoulder Flexion WFL. Shoulder abduction WFL. Elbow flexion WFL. Wrist flexion WFL. Opening and closing of hand WFL. Left Upper Extremity: Shoulder Flexion WFL. Shoulder abduction WFL. Elbow flexion WFL. Wrist flexion WFL. Opening and closing of hand WFL. Right Lower Extremity: Hip flexion WFL. Hip abduction WFL. Knee flexion WFL. Ankle dorsiflexion WFL. Ankle plantarflexion WFL. Left Lower Extremity: Hip flexion WFL. Hip abduction WFL. Knee flexion WFL. Ankle dorsiflexion WFL. Ankle plantarflexion WFL. Strength: Right Upper Extremity: Shoulder flexors 5/5. Shoulder abductors 5/5. Elbow flexors 5/5. Elbow extensors 5/5. Pension Fund Manager strong. Left Upper Extremity: Shoulder flexors 5/5. Shoulder abductors 5/5. Elbow flexors 5/5. Elbow extensors 5/5. Pension Fund Manager strong. Right Lower Extremity: Hip flexors 4/5. Hip abductors 4/5. Knee flexors 5/5. Knee extensors 4/5. Ankle dorsiflexors 5/5. Ankle plantarflexors 5/5. Left Lower Extremity:Hip flexors 5/5. Hip abductors 5/5. Knee flexors 5/5. Knee extensors 5/5. Ankle dorsiflexors 5/5. Ankle plantarflexors 5/5. Sensation: Intact as to pain and pressure on bilateral lower extremities. Bed Mobility/Transfers: Supine to sit independent Sit to supine independent Sit to stand supervision Stand to sit supervision Bed to chair supervision Chair to bed supervision Gait: 250 feet with FWW with supervision with step-through gait pattern. Up and down three 4-inch steps and two 6-inch steps while holding onto B rails with step-to gait pattern with supervision. Balance: Static Sitting: Normal Dynamic Sitting: Normal Static Standing: Fair Dynamic Standing: Fair Assessment: Gretchen demonstrates significant functional improvements for this episode of care. She has remaining functional mobility decline requiring the use of a front wheeled walker for all mobility ADL performance, difficulty with walking, impairment in balance, increased risk for falls due to postoperative status. Gretchen is a 79-year-old female with primary unilateral osteoarthritis of the left hip and is status post left total hip arthroplasty on postoperative day 1. Goals: Goals X 1 day 1. Supine-Sit independent MET 2. Sit-Supine independent MET 3. Sit-Stand independent NOT MET 4. Stand-Sit independent NOT MET 5. Bed-Chair independent NOT MET 6. Chair-Bed independent NOT MET 7. Independent gait on level surface with use of least restrictive device for at least 300 feet without report of pain nor dyspnea NOT MET 8. Independent stair negotiation while holding onto bilateral rails for at least 10 steps without report of pain nor dyspnea NOT MET 9. Independent with home exercise program NOT MET 10. Good static and dynamic standing balance/tolerance NOT MET DISCHARGE RECOMMENDATIONS: Home when medically cleared by orthopedic surgeon outpatient PT services as recommended in order to regain prior independent mobility level. TREATMENT CODE/TIME: [place] Thank you for the opportunity to participate in the care of this patient. Barbara Garnica PT, DPT, CLT [facility] [place], [place]
== END 2019-10-16 11:13 | disposition home or self-care (01) ==
LOC: PDS 10:06 → MS 10:09
PROVIDERS: Admitting Provider Student in an Organized Health Care Education/Training Program; PCP Family Medicine; Visit Provider Student in an Organized Health Care Education/Training Program
PROC: 0SRB04A Replacement of Left Hip Joint with Ceramic on Polyethylene Synthetic Substitute, Uncemented, Open Approach (ICD-10-PCS; CPT 27130; principal; 2019-10-15 07:30)
DX: M16.12 Unilateral primary osteoarthritis, left hip (principal); M25.552 Pain in left hip; Z96.642 Presence of left artificial hip joint; E11.9 Type 2 diabetes mellitus without complications; I10 Essential (primary) hypertension; K21.9 Gastro-esophageal reflux disease without esophagitis
CPT/HCPCS: 27130; 20985; C1776; 97110; 97162; 97530; NC; 73501; 94640; G0378; J0690; J1885; J2001; J3010

== ENCOUNTER 2019-10-25 10:09 | Outpatient (CLI) | payer MEDICARE, OTHER, SELFPAY ==
--- NOTE | 2019-10-25 09:45 | DI.RAD_ITS ---
EXAM: XR HIP LT COMPLETE AP PELVIS CLINICAL HISTORY: L ARTEMIO TECHNIQUE: COMPARISON: CR XR PELVIS AP from 06/21/2019 FINDINGS: Two views were obtained. There is a total hip joint replacement in position left. The components ap pear well seated. Moderate degenerative changes of the right hip noted as well. IMPRESSION: THR in place left. RADIATION DOSE DELIVERED: Total DLP
== END 2019-10-25 10:29 ==
PROVIDERS: PCP Family Medicine; Referring Provider Family Medicine; Visit Provider Physician Assistant
DX: Z96.642 Presence of left artificial hip joint (principal)
CPT/HCPCS: 73502

== ENCOUNTER → 2019-11-22 11:29 | Outpatient (BNVA) | payer MEDICARE, OTHER, SELFPAY | PROVIDERS: PCP Family Medicine; Referring Provider Family Medicine; Visit Provider Student in an Organized Health Care Education/Training Program | DX: Z96.642 Presence of left artificial hip joint (principal); Z47.1 Aftercare following joint replacement surgery ==

== ENCOUNTER 2019-12-05 01:27 | Outpatient (CLI) | payer MEDICARE, OTHER, SELFPAY ==
--- NOTE | 2019-12-05 07:15 | DI.RAD_ITS ---
EXAM: XR CHEST 2V PA LATERAL CLINICAL HISTORY: dyspnea,R06.00 TECHNIQUE: 2D digital imaging was performed. COMPARISON: CR CHEST 2 VIEWS PA,LAT from 03/13/2014 FINDINGS: The heart is not enlarged. The lungs are clear and well expanded. No pleural effusion seen. Mediastin al contours appear intact. IMPRESSION: Normal chest. RADIATION DOSE DELIVERED: Total DLP
== END 2019-12-05 01:47 ==
PROVIDERS: PCP Family Medicine; Visit Provider Nurse Practitioner Family
DX: R06.00 Dyspnea, unspecified (principal)
CPT/HCPCS: 36415; 80048; U0003; 71046; 85025

== ENCOUNTER 2019-12-05 07:53 | Outpatient (CLI) | payer MEDICARE, OTHER, SELFPAY ==
[2019-12-05 10:03] LABS: Abs Immature Grans 0.02 10^3/uL (0.0-0.06); Absolute Eosinophil Count 0.25 10^3/uL (0.0-0.7); Absolute Lymphocyte Count 3.17 10^3/uL (1.2-3.4); Absolute Monocyte Count 0.58 10^3/uL (0.1-0.8); Absolute Neutrophil Count 4.98 10^3/uL (1.2-6.7); Basophils % 1.1; Eosinophils % 2.7; HCT 48.1 % (36.0-46.0); Immature Grans % 0.2; Lymphocytes % 34.8; MCH 29.7 pg (27.0-33.0); MCHC 33.3 % (32.0-36.0); MCV 89.2 fL (80-95); MPV 9.8 fL (8.0-11.0); Monocytes % 6.4; Neutrophils % 54.8; Nucleated RBC 0 %; Platelet Count 214 10^3/uL (130-400); RBC 5.39 10^6/uL (3.93-5.22); RDW 13.6 % (11.7-14.6); RDW-SD 44.1 fL
[2019-12-05 10:12] LABS: Anion Gap 7.9 mmol/L (3-11); BUN 23 mg/dL (7-18); CO2 28.1 mmol/L (21.0-32.0); CREATININE 0.83 mg/dL (0.55-1.02); Calcium 9.6 mg/dL (8.5-10.1); Chloride 101 mmol/L (98-107); Glucose 189 mg/dL (74-106); Potassium 4.4 mmol/L (3.5-5.1); Sodium 137 mmol/L (136-145)
[2019-12-09 22:35] LABS: Patient Race White; SARS-CoV-2 RNA Undetected (Undetected); SARS-CoV-2 Specimen Source Nasal
== END 2019-12-05 08:13 ==
PROVIDERS: PCP Family Medicine; Visit Provider Nurse Practitioner Family
DX: R06.00 Dyspnea, unspecified (principal)
CPT/HCPCS: 36415; 80048; U0003; 85025

== ENCOUNTER 2020-03-25 03:19 | Outpatient (CLI) | payer MEDICARE, OTHER, SELFPAY ==
[2020-03-25 13:05] LABS: Hemoglobin A1C 5.9 % (<5.7)
[2020-03-25 14:47] LABS: COMMENT (LAB VIEW ONLY) 36.67 mg/dL
== END 2020-03-25 03:20 | disposition home or self-care (01) ==
LOC: LBO 03:19
PROVIDERS: PCP Family Medicine; Visit Provider Family Medicine
DX: E11.9 Type 2 diabetes mellitus without complications (principal); I10 Essential (primary) hypertension
CPT/HCPCS: 36415; 82043; 82570; 83036

== ENCOUNTER 2020-03-31 13:01 | Outpatient (CLI) | payer MEDICARE, OTHER, SELFPAY ==
--- NOTE | 2020-03-31 13:00 | RT.EKG_ITS ---
APPROVED REPORT Exam: Resting ECG Patient Location: O HR:72 bpm ECG Measurements Heart Rate 72 AXIS NM 165 P 75 QRSd 80 QRS -12 QT 376 T 56 QTc 412 Conclusion Sinus rhythm...normal P axis, V-rate 60- [address] depression, lateral leads...ST <-0.07mV, I aVL V5 V6
== END 2020-03-31 13:02 | disposition home or self-care (01) ==
LOC: DI.CM 13:02
PROVIDERS: PCP Family Medicine; Visit Provider Family Medicine
DX: Z01.818 Encounter for other preprocedural examination (principal)
CPT/HCPCS: 93010

== ENCOUNTER 2020-04-06 10:29 | Day surgery (SDC) | payer MEDICARE, OTHER, SELFPAY ==
[2020-04-06 10:56] VITALS: BP 128/76; PULSE 82; RESP 18; TEMP 36.1; O2SAT 94
[2020-04-06] MEDS: Tropicam./Phenyleph. (1/2.5%) 5 ML BTL OD ×3 (11:02→11:13)
[2020-04-06] MEDS: Tetracaine 0.5% 4 ML BTL OD (11:54)
[2020-04-06] MEDS: Lidocaine 2% Jelly 6 ML SYR (11:55)
[2020-04-06] MEDS: Balanced Salt Soln.-PLUS 500 ML BAG (11:58)
[2020-04-06] MEDS: Duovisc Viscoelastic System EACH 1 EACH (11:58)
[2020-04-06] MEDS: Povidone-Iodine Ophth 30 ML BTL (11:59)
[2020-04-06] MEDS: Lidocaine 1% Pres-Free 5 ML VIAL (11:59)
--- NOTE | 2020-04-06 12:17 | W.PM.DSUDISC ---
Discharge Plan Disposition Patient Disposition: HOME Condition: Good Discharge Details Attending Provider: Tripp Russell Primary Care Provider: Sandra Baldwin Home Meds and New Rx's Prescriptions: No Action nystatin 100,000 unit/gram powder 1 applic TP TID PRNRF: 0 bupropion HCl 300 mg tablet extended release 24 hr 300 mg PO DAILY Qty: 90 RF: 12 canagliflozin 100 mg tablet 100 mg PO QAM Qty: 90 RF: 5 Myrbetriq 25 mg tablet extended release 24 hr 25 mg PO DAILY Qty: 90 RF: 4 aspirin 81 mg tablet,delayed release (DR/EC) 81 mg PO DAILY RF: 0 calcium carbonate-vitamin D3 [Caltrate with Vitamin D3] 1 EACH tablet 2 tab PO DAILY RF: 0 Metamucil 283 GM powder 1 tbs PO DAILY PRNRF: 0 ONETOUCH ULTRA TEST STRIPS 1 EACH strip 1 strip Miscellaneous DAILY Qty: 100 RF: 3 meclizine 25 mg tablet 25 mg PO TID PRN (Reason: dizziness) Qty: 30 RF: 0 (DME) lancets [OneTouch UltraSoft Lancets] Misc 1 ea Miscellaneous DAILY Qty: 100 RF: 4 (DME) Blood Glucose Test Strip See Rx Instructions .ROUTE .MEDSUPPLY Qty: 100 RF: 5 atenolol 25 mg tablet 25 mg PO DAILY Qty: 90 RF: 4 fluconazole 150 mg tablet 150 mg PO QWEEK Qty: 12 RF: 2 sertraline 100 mg tablet 100 mg PO DAILY Qty: 90 RF: 4 metformin 1,000 mg tablet extended release 24hr 1,000 mg PO DAILY Qty: 90 RF: 4 losartan-hydrochlorothiazide [Hyzaar] 100-25 mg tablet 1 tab PO DAILY Qty: 90 RF: 3 omeprazole 20 mg capsule,delayed release(DR/EC) 20 mg PO DAILY Qty: 90 RF: 4 lorazepam 0.5 mg tablet 0.5 mg PO BID PRN (Reason: anxiety) Qty: 30 RF: 2 multivitamin Tablet 1 tab PO DAILY RF: 0 acetaminophen 500 mg tablet 1,000 mg PO Q8H PRN (Reason: pain) Qty: 90 RF: 3 Discharge Instructions Stand Alone Forms: Post-op Topical Cataract, Press Ganey (DSU) Discharge Orders Discharge Orders: Discharge Order (Routine); Ordered 04/06/20 Ordered By: Tripp Russell DS: Diagnosis Discharge Diagnosis (1) Nuclear sclerotic cataract of right eye: Status: Resolved (2) Cortical cataract of right eye: Status: Resolved
--- NOTE | 2020-04-06 12:18 | ROE_ITS ---
Date of service: 04/06/20 Time of Service: 12:18 Operative Note Operative Note DATE OF PROCEDURE: 04/06/20 PRE-OP DIAGNOSIS: Nuclear/cortical cataract, right eye POST-OP DIAGNOSIS: same PROCEDURE: Cataract extraction using phacoemulsification with intraocular lens implant, right eye SURGEON: Tripp Russell Refer to Anesthesia Record ESTIMATED BLOOD LOSS: 0 PATHOLOGY: none sent COMPLICATIONS: None Patient was transported to: same day Patient's condition: stable Implants: Juan [employer] Juan Vision / [employer] Tecnis [id number] intraocular lens Indications: Progressive decreased vision due to cataract, right eye Procedure Description: CATARACT SURGERY OPERATIVE REPORT PREOPERATIVE DIAGNOSIS: Nuclear/cortical cataract, right eye POSTOPERATIVE DIAGNOSIS: Same OPERATION: Cataract extraction using phacoemulsification with posterior chamber intraocular lens implant, right eye. IOL: IOL Packer Dried Beef/Model: J&J Vision / TIRSO Tecnis ZCB00 IOL Power: + 14.50 diopters IOL Serial Number: [id number] Optic Diameter: 6.0mm Haptic/Overall Diameter: 13.0mm PHACO INFO: [employer] X[employer]urion Vision System with OZil and Active Fluidics Cumulative Dispersed Energy (CDE): 6.14 seconds SURGEON: Tripp Russell MD, ABBEY ANESTHESIA: Monitored Anesthesia Care (MAC), with local sub-tenon's anesthetic infiltration COMPLICATIONS: None SPECIMENS: None INDICATIONS FOR PROCEDURE: The patient is a 79-year-old lady who presented with complaints of progressive decreased vision in her right eyes. She is noted to have a significant nuclear/cortical cataract in the right eye. The option of cataract surgery was offered to the patient and she wished to proceed. Of note, she also has a history of 4th nerve palsy. The option of cataract surgery was offered to the patient and she wished to proceed. She understands that cataract surgery will not eliminate her diplopia postoperatively. PROCEDURE: The correct surgical eye was identified and marked as the right eye and the pupil was dilated in the preoperative area using mydriatics and cycloplegics. The dilated pupil size was 6.0 mm. She elected to proceed without sedation. The patient was brought to the operating room where cardiopulmonary monitoring was instituted and surgical time-out was performed, confirming the correct operative eye and IOL power. Topical anesthesia was administered and ophthalmic povidone-iodine 5% was instilled into the conjunctival fornices. Lidocaine gel was applied to the cornea and the diamante-ocular area was prepped with Betadine 10% solution and draped in the usual sterile fashion for intraocular surgery, including an aperture drape. A Tegaderm transparent film dressing was cut in half and used to cover the lashes and lid margins. Care was taken to sequester the lashes and lid margins under the Tegaderm dressing. A lid speculum was placed between the lids of the operative eye and the Candace-Safia operating microscope was maneuvered into position. Maykel scissors were then used to make a conjunctival buttonhole approximately 6mm posterior to the limbus in the inferonasal quadrant. Blunt dissection was carried out to expose bare sclera, and a blunt-tipped sub-tenon?s anesthesia cannula was introduced and passed posteriorly along the globe where non- preserved plain lidocaine was injected into posterior sub-Tenon?s space. A sideport knife was used to make a paracentesis port inferiortemporally. Intraocular phenylephrine/lidocaine was injected into the anterior chamber. The anterior chamber was then filled with viscoelastic. A 2.4mm keratome knife was used to create a half-thickness groove at the limbus and then to construct a three-plane near-clear corneal tunnel extending 2.0mm into clear cornea in the superiortemporal position. . A flap was raised on the anterior capsule and capsulorhexis forceps were used to complete a continuous curvilinear capsulorhexis of 5.0 mm. Balanced salt solution was then used to perform cortical cleaving hydrodissection and nuclear hydrodelineation until the lens could be freely rotated within the capsular bag. The lens nucleus was then disassembled and removed within the capsular bag and iris plane using phacoemulsification. Residual cortical material was removed using the I/A handpiece. The posterior capsule was carefully polished to remove as much residual lens epithelial cells as safely possible. The capsular bag was then inflated and the anterior chamber deepened with viscoelastic. The lens implant described above was inserted into the capsular bag using the TIRSO [place] Injector. A Kuglen hook was used to dial the IOL into position. Residual viscoelastic was then removed first from posterior to the IOL, then from the anterior chamber using the I/A handpiece. The lens implant was noted to center nicely within the capsular bag. The incisions were stromally hydrated, and the anterior chamber was reformed using BSS. Then 0.5cc of moxifloxacin 1.0mg/ml were injected into the capsular bag and anterior chamber. The incisions were checked with a Weck spear and found to be secure. Several drops of ophthalmic povidone-iodine 5% were then applied to the eye followed by two drops of Imprimis combination prednisolone/moxifloxacin/nepafenac solution. The drapes were removed and a clear plastic protective eye shield was placed over the eye. The patient was then returned to Same Day Surgery in stable condition.
== END 2020-04-06 12:38 | disposition home or self-care (01) ==
PROVIDERS: PCP Family Medicine; Visit Provider Ophthalmology
PROC: (CPT 66984; principal; 2020-04-06 13:30)
DX: H25.11 Age-related nuclear cataract, right eye (principal); H25.011 Cortical age-related cataract, right eye; H49.10 Fourth [trochlear] nerve palsy, unspecified eye
CPT/HCPCS: 66984; V2632

== ENCOUNTER 2020-04-20 10:26 | Day surgery (SDC) | payer MEDICARE, OTHER, SELFPAY ==
[2020-04-20 10:40] VITALS: BP 119/73; PULSE 56; RESP 16; TEMP 36.2; O2SAT 95
[2020-04-20] MEDS: Tropicam./Phenyleph. (1/2.5%) 5 ML BTL OS ×3 (10:48→11:01)
[2020-04-20] MEDS: Tetracaine 0.5% 4 ML BTL OS (11:54)
[2020-04-20] MEDS: Povidone-Iodine Ophth 30 ML BTL (11:54)
[2020-04-20] MEDS: Lidocaine 2% Jelly 6 ML SYR (11:55)
[2020-04-20] MEDS: Lidocaine 1% Pres-Free 5 ML VIAL (11:59)
[2020-04-20] MEDS: Balanced Salt Soln.-PLUS 500 ML BAG (12:01)
[2020-04-20] MEDS: Duovisc Viscoelastic System EACH 1 EACH (12:04)
--- NOTE | 2020-04-20 12:20 | W.PM.DSUDISC ---
Discharge Plan Disposition Patient Disposition: HOME Condition: Good Discharge Details Attending Provider: Tripp Russell Primary Care Provider: Sandra Baldwin Home Meds and New Rx's Prescriptions: No Action nystatin 100,000 unit/gram powder 1 applic TP TID PRNRF: 0 bupropion HCl 300 mg tablet extended release 24 hr 300 mg PO DAILY Qty: 90 RF: 12 canagliflozin 100 mg tablet 100 mg PO QAM Qty: 90 RF: 5 Myrbetriq 25 mg tablet extended release 24 hr 25 mg PO DAILY Qty: 90 RF: 4 aspirin 81 mg tablet,delayed release (DR/EC) 81 mg PO DAILY RF: 0 calcium carbonate-vitamin D3 [Caltrate with Vitamin D3] 1 EACH tablet 2 tab PO DAILY RF: 0 Metamucil 283 GM powder 1 tbs PO DAILY PRNRF: 0 ONETOUCH ULTRA TEST STRIPS 1 EACH strip 1 strip Miscellaneous DAILY Qty: 100 RF: 3 meclizine 25 mg tablet 25 mg PO TID PRN (Reason: dizziness) Qty: 30 RF: 0 (DME) lancets [OneTouch UltraSoft Lancets] Misc 1 ea Miscellaneous DAILY Qty: 100 RF: 4 (DME) Blood Glucose Test Strip See Rx Instructions .ROUTE .MEDSUPPLY Qty: 100 RF: 5 atenolol 25 mg tablet 25 mg PO DAILY Qty: 90 RF: 4 fluconazole 150 mg tablet 150 mg PO QWEEK Qty: 12 RF: 2 sertraline 100 mg tablet 100 mg PO DAILY Qty: 90 RF: 4 metformin 1,000 mg tablet extended release 24hr 1,000 mg PO DAILY Qty: 90 RF: 4 losartan-hydrochlorothiazide [Hyzaar] 100-25 mg tablet 1 tab PO DAILY Qty: 90 RF: 3 omeprazole 20 mg capsule,delayed release(DR/EC) 20 mg PO DAILY Qty: 90 RF: 4 lorazepam 0.5 mg tablet 0.5 mg PO BID PRN (Reason: anxiety) Qty: 30 RF: 2 multivitamin Tablet 1 tab PO DAILY RF: 0 acetaminophen 500 mg tablet 1,000 mg PO Q8H PRN (Reason: pain) Qty: 90 RF: 3 Discharge Instructions Stand Alone Forms: Post-op Topical Cataract, Press Ganey (DSU) Discharge Orders Discharge Orders: Discharge Order (Routine); Ordered 04/20/20 Ordered By: Tripp Russell DS: Diagnosis Discharge Diagnosis (1) Nuclear sclerotic cataract of left eye: Status: Resolved (2) Cortical cataract of left eye: Status: Resolved
--- NOTE | 2020-04-20 12:21 | ROE_ITS ---
Date of service: 04/20/20 Time of Service: 12:22 Operative Note Operative Note DATE OF PROCEDURE: 04/20/20 PRE-OP DIAGNOSIS: Nuclear/cortical cataract, left eye POST-OP DIAGNOSIS: same PROCEDURE: Cataract extraction using phacoemulsification with intraocular lens implant, left eye SURGEON: Tripp Russell ANESTHESIA TYPE: Local By Surgeon and MAC Refer to Anesthesia Record PATHOLOGY: none sent COMPLICATIONS: None Patient was transported to: same day Patient's condition: stable Implants: [employer] / [employer] Tecnis [id number] Indications: Progressive decreased vision due to cataract, left eye Procedure Description: CATARACT SURGERY OPERATIVE REPORT PREOPERATIVE DIAGNOSIS: Nuclear/cortical cataract, left eye POSTOPERATIVE DIAGNOSIS: Same OPERATION: Cataract extraction using phacoemulsification with posterior chamber intraocular lens implant, left eye. IOL: IOL Low Pressure Boiler Operator/Model: J&J Vision / TIRSO Tecnis ZCB00 IOL Power: + 13.5 diopters IOL Serial Number: [id number] Optic Diameter: 6.0mm Haptic/Overall Diameter: 13.0mm PHACO INFO: [employer] Summit[employer]urion Vision System with OZil and Active Fluidics Cumulative Dispersed Energy (CDE): 11.92 seconds SURGEON: Tripp Russell MD, ABBEY ANESTHESIA: Monitored Anesthesia Care (MAC), with local sub-tenon's anesthetic infiltration COMPLICATIONS: None SPECIMENS: None INDICATIONS FOR PROCEDURE: The patient is a 79-year old lady with history of diminished visual acuity in both eyes secondary to development of bilateral nuclear and cortical cataract. She has already undergone cataract surgery in her right eye and is doing well postoperatively. She now presents for cataract surgery in the left eye. PROCEDURE: The correct surgical eye was identified and marked as the left eye and the pupil was dilated in the preoperative area using mydriatics and cycloplegics. The dilated pupil size was 6.0 mm. The patient elected to proceed without oral sedation. The patient was brought to the operating room where cardiopulmonary monitoring was instituted and surgical time-out was performed, confirming the correct operative eye and IOL power. Topical anesthesia was administered and ophthalmic povidone-iodine 5% was instilled into the conjunctival fornices. Lidocaine gel was applied to the cornea and the diamante-ocular area was prepped with Betadine 10% solution and draped in the usual sterile fashion for intraocular surgery, including an aperture drape. A Tegaderm transparent film dressing was cut in half and used to cover the lashes and lid margins. Care was taken to sequester the lashes and lid margins under the Tegaderm dressing. A lid speculum was placed between the lids of the operative eye and the Candace-Safia operating microscope was maneuvered into position. Maykel scissors were then used to make a conjunctival buttonhole approximately 6mm posterior to the limbus in the inferonasal quadrant. Blunt dissection was carried out to expose bare sclera, and a blunt-tipped sub-tenon?s anesthesia cannula was introduced and passed posteriorly along the globe where non- preserved plain lidocaine was injected into posterior sub-Tenon?s space. A sideport knife was used to make a paracentesis port superior/superiortemporally. Intraocular phenylephrine/lidocaine was injected into the anterior chamber. The anterior chamber was then filled with viscoelastic. A 2.4mm keratome knife was used to create a half-thickness groove at the limbus and then to construct a three-plane near-clear corneal tunnel extending 2.0mm into clear cornea in the temporal position. . A flap was raised on the anterior capsule and capsulorhexis forceps were used to complete a continuous curvilinear capsulorhexis of 5.0 mm. Balanced salt solution was then used to perform cortical cleaving hydrodissection and nuclear hydrodelineation until the lens could be freely rotated within the capsular bag. The lens nucleus was then disassembled and removed within the capsular bag and iris plane using phacoemulsification. Residual cortical material was removed using the 45-degree angled silicone I/A tip with 0.3mm port. The posterior capsule was carefully polished to remove as much residual lens epithelial cells as safely possible. The capsular bag was then inflated and the anterior chamber deepened with viscoelastic. The lens implant described above was inserted into the capsular bag using the TIRSO [place] Injector. A Kuglen hook was used to dial the IOL into position. Residual viscoelastic was then removed first from posterior to the IOL, then from the anterior chamber using the I/A handpiece. The lens implant was noted to center nicely within the capsular bag. The incisions were stromally hydrated, and the anterior chamber was reformed using BSS. Then 0.5cc of moxifloxacin 1.0mg/ml were injected into the capsular bag and anterior chamber. The incisions were checked with a Weck spear and found to be secure. Several drops of ophthalmic povidone-iodine 5% were then applied to the eye followed by two drops of Imprimis combination prednisolone/moxifloxacin/nepafenac solution. The drapes were removed and a clear plastic protective eye shield was placed over the eye. The patient was then returned to Same Day Surgery in stable condition.
== END 2020-04-20 12:35 | disposition home or self-care (01) ==
PROVIDERS: PCP Family Medicine; Visit Provider Ophthalmology
PROC: (CPT 66984; principal; 2020-04-20 13:30)
DX: H25.12 Age-related nuclear cataract, left eye (principal); E11.9 Type 2 diabetes mellitus without complications; K21.9 Gastro-esophageal reflux disease without esophagitis; E78.5 Hyperlipidemia, unspecified; I10 Essential (primary) hypertension
CPT/HCPCS: 66984; V2632

== ENCOUNTER 2020-08-19 02:30 | Outpatient (CLI) | payer MEDICARE, OTHER, SELFPAY ==
--- NOTE | 2020-08-19 | DI.DEXA_ITS ---
Exam(s) XR DEXA BONE DENSITY W/WO PHILIPPE EXAM: XR DEXA BONE DENSITY W/WO PHILIPPE CLINICAL HISTORY: OSTEOPOROSIS, M81.0 TECHNIQUE: Vigster C densitometer COMPARISON: DEXA scan 2005 FINDINGS: Lateral view of the thoracic and lumbar spine shows no evidence of compression fractures. Bone mineral density measurements of the lumbar spine correspond to a total T-score of -0.1, in the n ormal range. This represents an 8.6 percent increase when compared with 2005. Findings may be secon kaleb to worsening degenerative disc changes. The right hip was scanned due to presence of left hip prosthesis. Bone mineral density measurements of the right hip correspond to a total T-score of -1.1 . The femoral neck T-score is -0.8. The fin dings are consistent with osteopenia. The right forearm bone mineral density measurements correspond to a T-score of the distal 3rd of -1.1 , consistent with mild osteopenia. The forearm was not analyzed in 2005.. IMPRESSION: Normal bone mineral density of the lumbar spine. Osteopenia of the left hip and left forearm.
== END 2020-08-19 02:50 ==
PROVIDERS: PCP Family Medicine; Visit Provider Family Medicine
DX: M85.89 Other specified disorders of bone density and structure, multiple sites (principal); M81.0 Age-related osteoporosis without current pathological fracture
CPT/HCPCS: 77080

== ENCOUNTER 2020-10-26 09:41 | Outpatient (CLI) | payer MEDICARE, OTHER, SELFPAY ==
--- NOTE | 2020-10-26 09:15 | DI.RAD_ITS ---
Exam(s) XR HIP PELVIS ADULT BL EXAM: XR HIP PELVIS ADULT BL CLINICAL HISTORY: s/p left ARTEMIO; right hip pain. TECHNIQUE: 2D digital imaging was performed. COMPARISON: CR XR DEXA BONE DENSITY W/WO PHILIPPE from 08/19/2020 FINDINGS: Five views of the pelvis and both hips reveal satisfactory position alignment of the components of th e left hip prosthesis with no evidence of fracture or loosening. Moderate-advanced osteoarthritic de generative changes are noted in the opposite-right hip with moderate-advanced joint space narrowing a nd marginal osteophytes at the femoral head level. No lytic osseous lesions. Visualized sacroiliac joints appear unremarkable. IMPRESSION: DATA REPOSITORY: RADIATION DOSE DELIVERED:
== END 2020-10-26 09:42 | disposition home or self-care (01) ==
LOC: DIORS 09:41
PROVIDERS: PCP Family Medicine; Referring Provider Family Medicine; Visit Provider Student in an Organized Health Care Education/Training Program
DX: M25.551 Pain in right hip (principal); Z47.1 Aftercare following joint replacement surgery; Z96.642 Presence of left artificial hip joint; M16.11 Unilateral primary osteoarthritis, right hip
CPT/HCPCS: 73521; 99213

== ENCOUNTER 2020-11-25 03:47 | Outpatient (CLI) | payer MEDICARE, OTHER, SELFPAY ==
[2020-11-25 10:03] LABS: Hemoglobin A1C 5.8 % (<5.7)
== END 2020-11-25 03:48 | disposition home or self-care (01) ==
LOC: LBO 03:47
PROVIDERS: PCP Family Medicine; Visit Provider Family Medicine
DX: E11.9 Type 2 diabetes mellitus without complications (principal)
CPT/HCPCS: 36415; 83036

== ENCOUNTER → 2020-12-23 13:03 | Outpatient (BNVA) | payer MEDICARE, OTHER, SELFPAY | PROVIDERS: PCP Family Medicine; Referring Provider Family Medicine | DX: Z01.818 Encounter for other preprocedural examination (principal); M16.11 Unilateral primary osteoarthritis, right hip; E11.9 Type 2 diabetes mellitus without complications ==

== ENCOUNTER 2021-01-04 02:08 | Outpatient (CLI) | payer MEDICARE, OTHER, SELFPAY ==
[2021-01-04 09:56] LABS: HCT 46.2 % (36.0-46.0); HGB 15.6 g/dL (11.2-15.7); MCH 30.2 pg (27.0-33.0); MCHC 33.8 % (32.0-36.0); MCV 89.4 fL (80-95); MPV 9.8 fL (8.0-11.0); Platelet Count 175 10^3/uL (130-400); RBC 5.17 10^6/uL (3.93-5.22); RDW-SD 46.3 fL; WBC 9.25 10^3/uL (4.4-10.8)
[2021-01-04 11:01] LABS: Anion Gap 9.3 mmol/L (3-11); BUN 19 mg/dL (7-18); CO2 28.7 mmol/L (21.0-32.0); CREATININE 0.8 mg/dL (0.55-1.02); Calcium 9.2 mg/dL (8.5-10.1); Chloride 103 mmol/L (98-107); Glucose 134 mg/dL (74-106); Potassium 4.2 mmol/L (3.5-5.1); Sodium 141 mmol/L (136-145)
== END 2021-01-04 02:09 | disposition home or self-care (01) ==
LOC: LBO 02:09
PROVIDERS: PCP Family Medicine; Visit Provider Student in an Organized Health Care Education/Training Program
DX: M16.11 Unilateral primary osteoarthritis, right hip (principal); Z01.818 Encounter for other preprocedural examination
CPT/HCPCS: 36415; 80048; 85027; 86850; 86900; 86901; 87635

== ENCOUNTER 2021-01-04 02:45 | Outpatient (CLI) | payer MEDICARE, OTHER, SELFPAY ==
[2021-01-04 10:59] LABS: Source Nasal/Nares
[2021-01-04 14:01] LABS: COVID-19 PCR Negative (Negative)
== END 2021-01-04 02:46 | disposition home or self-care (01) ==
LOC: LBO 02:46
PROVIDERS: PCP Family Medicine; Visit Provider Student in an Organized Health Care Education/Training Program
DX: Z20.822 Contact with and (suspected) exposure to COVID-19 (principal)
CPT/HCPCS: 87635

== ENCOUNTER 2021-01-06 07:16 | Day surgery (SDC) | payer MEDICARE, OTHER, SELFPAY ==
[2021-01-06] VITALS (11 sets, daily range): BP systolic 101–133; BP diastolic 44–70; PULSE 59–66; RESP 10–16; TEMP 36.3–36.6; O2SAT 94–96; BMI 28.9
--- NOTE | 2021-01-06 06:42 | W.ANESPRE ---
General Info Date of Service Date Performed: 01/06/21 Height: 5 ft 9 in Weight: 88.904 kg Body Mass Index (BMI): 28.9 Surgical Procedure: Operation Date: 01/06/21 10:35 Proposed Procedures Side Surgeon p Hip Total Hip Anterior Right Dann Martinez MD Meds Allergies and Home Medications Allergies Allergy/AdvReac Type Severity Reaction Status Date / Time No Known Allergies Allergy Verified 01/06/21 07:47 Home Medication Medication Instructions Recorded calcium carbonate-vitamin D3 2 tab PO DAILY 04/27/12 [Caltrate with Vitamin D3] Metamucil 1 tbs PO DAILY PRN 03/17/14 meclizine 25 mg tablet 25 mg PO TID PRN #30 tab-cap 06/17/18 blood sugar diagnostic #100 each 06/24/19 lancets #100 ea 06/24/19 multivitamin 1 tab PO DAILY 10/10/19 losartan 100 1 tab PO DAILY #90 tab-cap 02/17/20 mg-hydrochlorothiazide 25 mg tablet omeprazole 20 mg capsule,delayed 20 mg PO DAILY #90 tab-cap 02/19/20 release lorazepam 0.5 mg tablet 0.5 mg PO BID PRN #30 tab-cap 02/21/20 nystatin 100,000 unit/gram topical 1 applic TP TID PRN gm 03/31/20 powder atenolol 25 mg tablet 25 mg PO DAILY #90 tab 10/20/20 bupropion HCl 300 mg 24 hr tablet, 300 mg PO DAILY #90 tab-cap 10/20/20 extended release fluconazole 150 mg tablet 150 mg PO QWEEK #12 tab 10/20/20 metformin 1,000 mg tablet,extended 1,000 mg PO DAILY #90 tab 10/20/20 release 24hr sertraline 100 mg tablet 100 mg PO DAILY #90 tab 10/20/20 acetaminophen 1,000 mg PO Q8H PRN #90 tab 01/06/21 aspirin 81 mg PO BID 30 Days #60 tab 01/06/21 celecoxib [Celebrex] 200 mg PO BID #30 cap 01/06/21 docusate sodium [Colace] 100 mg PO BID #30 cap 01/06/21 oxycodone 2.5 - 5 mg PO Q6H PRN #12 tab 01/06/21 Current Visit Medications: Current Medications Generic Name Dose Route Start Last Admin Trade Name Paras PRN Reason Stop Dose Admin Acetaminophen 1,000 mg 01/06/21 06:00 Acetaminophen 500 Mg Tab PO 01/06/21 16:00 PREOP BYRON Celecoxib 400 mg 01/06/21 06:00 Celecoxib 200 Mg Cap PO 01/06/21 16:00 PREOP BYRON Tranexamic Acid 1,000 mg/ 60 mls @ 360 mls/hr 01/06/21 06:00 Sodium Chloride IV 01/06/21 16:00 PREOP BYRON Ringer's Solution 1,000 mls @ 80 mls/hr 01/06/21 06:00 IV 02/04/21 23:59 INFUSION BYRON Cefazolin Sodium/Dextrose 2 gm in 50 mls @ 100 mls/hr 01/06/21 06:00 Ancef Duplex IVPB 02/04/21 23:59 PREOP BYRON IV Miscellaneous Supplies 1 each 01/06/21 06:00 Iv Access IV 02/04/21 23:59 DIRECTED BYRON Sodium Chloride 0 ml 01/06/21 06:00 Normal Saline Flush 10 Ml Syr IV 02/04/21 23:59 PRN PRN Sodium Chloride 0 ml 01/06/21 06:00 Normal Saline 10 Ml Vial IJ 02/04/21 23:59 DIRECTED PRN Sterile Water 0 ml 01/06/21 06:00 Water,Injection,Sterile 10 Ml Vial IJ 02/04/21 23:59 DIRECTED PRN PFSH Active Problems Active Problems: Problem Status Onset Code Advance care planning Z71.89 Degenerative joint disease of right hip M16.11 Balance disorder R26.89 Ingrown nail 03/29/16 L60.0 Dysphonia 11/28/13 R49.0 Hyperlipidemia 04/05/12 E78.5 Depressive disorder F32.9 Diabetes mellitus E11.9 Essential hypertension 11/16/12 I10 Gastroesophageal reflux disease with esophagitis K21.0 Increased BMI R63.8 Lumbago M54.5 Non-alcoholic fatty liver disease 01/05/05 K76.0 Sensorineural hearing loss, bilateral 06/13/13 H90.3 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 Medical History Active Problem List Varicose veins of lower extremity (Chronic) Sensorineural hearing loss, bilateral (Chronic 06/13/13) Non-alcoholic fatty liver disease (Chronic 01/05/05) Lumbago (Chronic) Increased BMI (Chronic) Gastroesophageal reflux disease with esophagitis (Chronic) Essential hypertension (Chronic 11/16/12) Diabetes mellitus (Chronic) Depressive disorder (Chronic) Hyperlipidemia (Chronic 04/05/12) Dysphonia (Chronic 11/28/13) Balance disorder (Acute) Degenerative joint disease of right hip (Chronic) Advance care planning (Acute) Medical History Bloating symptom (05/08/17) Degenerative joint disease of right knee previously treated with injections Surgical History Surgical History (Updated 01/06/21 @ 07:47 by Ramiro Tracy) History of total left hip replacement (10/15/19) Hx of cataract surgery s/p bilateral cataract extractions Hx of colonoscopy Hx of esophagogastroduodenoscopy Hx of tonsillectomy Ligation of fallopian tube Status post arthroscopy of right knee Tobacco Smoking/Tobacco Use Status: Never Passive smoking exposure: Yes Second hand exposure: Yes Alcohol Alcohol Intake: current Alcohol intake frequency: 0-2 drinks per day Alcohol type: wine Substance Use Substance use: Never Substance use type: does not use Vital Signs and Lab Results Vital Signs Most Recent Vital Signs in EMR: Temp Pulse Resp BP Pulse Ox 36.4 C L 66 16 133/70 96 01/06/21 07:53 01/06/21 07:53 01/06/21 07:53 01/06/21 07:53 01/06/21 07:53 Lab Results Blood Type / Crossmatch: Patient ABO/Rh O Positive 01/06/21 07:38 01/06/21 Antibody Screen NEGATIVE 01/06/21 07:38 01/06/21 Complete Blood Count: White Blood Count 9.25 10^3/uL (4.4-10.8) 01/04/21 09:50 01/04/21 Red Blood Count 5.17 10^6/uL (3.93-5.22) 01/04/21 09:50 01/04/21 Hemoglobin 15.6 g/dL (11.2-15.7) 01/04/21 09:50 01/04/21 Hematocrit 46.2 % (36.0-46.0) H 01/04/21 09:50 01/04/21 Platelet Count 175 10^3/uL (130-400) 01/04/21 09:50 01/04/21 Complete Metabolic Panel: Sodium Level 141 mmol/L (136-145) 01/04/21 09:50 01/04/21 Potassium Level 4.2 mmol/L (3.5-5.1) 01/04/21 09:50 01/04/21 Chloride Level 103 mmol/L (98-107) 01/04/21 09:50 01/04/21 Carbon Dioxide Level 28.7 mmol/L (21.0-32.0) 01/04/21 09:50 01/04/21 Blood Urea Nitrogen 19 mg/dL (7-18) H 01/04/21 09:50 01/04/21 Creatinine 0.8 mg/dL (0.55-1.02) 01/04/21 09:50 01/04/21 Estimated GFR/1.73 m2 >= 60.00 (mL/min/1.73m2) 01/04/21 09:50 01/04/21 Calcium Level 9.2 mg/dL (8.5-10.1) 01/04/21 09:50 01/04/21 Glucose Level 134 mg/dL (74-106) H 01/04/21 09:50 01/04/21 Liver Function Panel: No Data to Display Coagulation Panel: No Data to Display Cardiac Panel: No Data to Display Arterial Blood Gas: No Data to Display Venous Blood Gas: No Data to Display Pancreas Panel: No Data to Display Thyroid Panel: No Data to Display Infectious Disease: Coronavirus (COVID-19)(PCR) Negative (Negative) 01/04/21 10:22 01/04/21 Coronavirus 2019 Source Nasal/Nares 01/04/21 10:22 01/04/21 Blood Cultures: No Data to Display Toxicology Panel: No Data to Display Imaging and Studies Imaging and Studies EKG Summary: 03/2020: sinus rhythm. borderline ST depression lateral leads. Echocardiogram Summary: 2018: mild LVH, hyperdynamic, LVEF 65-60%, normal RVFxn. Anesthesia Assessment and Plan Anesthesia History Personal History: No History of Anesthesia Complications Family History: No Family History of Anesthesia Complications Exercise Tolerance Exercise Tolerance: Metabolic Equivalents>4 Pertinent Negatives Pertinent Negatives: No Symptoms of GERD Cardiac & Pulmonary Exam Cardiac Exam: Normal S1/S2 Heart Sounds Pulmonary Exam: Clear Bilateral Breath Sounds Implantable Cardiac Device Does patient have a Pacemaker or an ICD?: No Airway Exam Known Difficult Airway: No Mallampati Class: 1 Mouth Opening: Normal (> 3cm) Thyromental Distance: Greater than 3 cm Neck Range of Motion: Full ROM Neck Circumference: Normal Teeth Condition: Normal Dentition ASA Classification ASA Score: ASA 2 Emergency Case?: No NPO Status NPO Status: NPO Clears >2 hours, Solids >8 hours Anesthesia Plan Resuscitation Status: Full Code Anesthesia Technique: Spinal Anesthesia Airway Planned: Natural Airway Monitors Used: Standard Monitors Preoperative Comments:: 80 yo female for right ARTEMIO. Sig PMHx: DM (metformin, 11/26 A1c 5.8%), HTN (atenolol, losartan, HCTZ), GERD (omeprazole), anxiety (lorazepam) never smoker, occ EtOH. Previous Anes: spinal for ARTEMIO without issues (1.2 mL 0.75% w dextrose, 20 mcg fent).
--- NOTE | 2021-01-06 07:32 | W.PM.DS.N ---
Documented by User: Altagracia Ren 01/06/21 09:18 DS: Diagnosis Discharge Diagnosis (1) Degenerative joint disease of right hip: Status: Chronic Discharge Plan Disposition Patient Disposition: HOME Condition: Good Discharge Details Reason For Visit: right hip DJD Attending Provider: Dann Martinez Primary Care Provider: Sandra Baldwin Home Meds and New Rx's Prescriptions: New celecoxib [Celebrex] 200 mg capsule 200 mg PO BID Qty: 30 RF: 0 aspirin 81 mg tablet,delayed release (DR/EC) 81 mg PO BID 30 Days Qty: 60 RF: 0 acetaminophen 500 mg tablet 1,000 mg PO Q8H PRN Qty: 90 RF: 0 docusate sodium [Colace] 100 mg capsule 100 mg PO BID Qty: 30 RF: 0 oxycodone 5 mg tablet 2.5 - 5 mg PO Q6H PRN (Reason: severe post-operative pain) Qty: 12 RF: 0 Continued nystatin 100,000 unit/gram powder 1 applic TP TID PRNRF: 0 calcium carbonate-vitamin D3 [Caltrate with Vitamin D3] 1 EACH tablet 2 tab PO DAILY RF: 0 Metamucil 283 GM powder 1 tbs PO DAILY PRNRF: 0 ONETOUCH ULTRA TEST STRIPS 1 EACH strip 1 strip Miscellaneous DAILY Qty: 100 RF: 3 meclizine 25 mg tablet 25 mg PO TID PRN (Reason: dizziness) Qty: 30 RF: 0 (DME) lancets [OneTouch UltraSoft Lancets] Misc 1 ea Miscellaneous DAILY Qty: 100 RF: 4 (DME) Blood Glucose Test Strip See Rx Instructions .ROUTE .MEDSUPPLY Qty: 100 RF: 5 losartan-hydrochlorothiazide [Hyzaar] 100-25 mg tablet 1 tab PO DAILY Qty: 90 RF: 3 omeprazole 20 mg capsule,delayed release(DR/EC) 20 mg PO DAILY Qty: 90 RF: 4 lorazepam 0.5 mg tablet 0.5 mg PO BID PRN (Reason: anxiety) Qty: 30 RF: 2 fluconazole 150 mg tablet 150 mg PO QWEEK Qty: 12 RF: 2 bupropion HCl 300 mg tablet extended release 24 hr 300 mg PO DAILY Qty: 90 RF: 12 atenolol 25 mg tablet 25 mg PO DAILY Qty: 90 RF: 4 sertraline 100 mg tablet 100 mg PO DAILY Qty: 90 RF: 4 metformin 1,000 mg tablet extended release 24hr 1,000 mg PO DAILY Qty: 90 RF: 4 multivitamin Tablet 1 tab PO DAILY RF: 0 Discontinued aspirin 81 mg tablet,delayed release (DR/EC) 81 mg PO DAILY RF: 0 acetaminophen 500 mg tablet 1,000 mg PO Q8H PRN (Reason: pain) Qty: 90 RF: 3 Discharge Instructions Additional Instructions: Total Hip Discharge Instructions Activity: The most important activity is to walk. You should try to take short walks a few times a day. You have no restrictions on movement or positioning, but do not try to force what you do. You will find some stiffness and weakness with hip flexion (lifting your knee). Do not try to strengthen this too early, continue to practice walking and stairs and this will come. - Outpatient physical therapy can be helpful to help return you to a normal gait and improve your flexibility and strength. This can start around 2 weeks. For some patients, it?s not necessary. Usually this is determined at the time of discharge or at the first post-operative visit. - You should wear the HARPREET hose on both legs for 2 weeks. Dressing: Keep the surgical dressing in place for at least one week. After the first week it may be removed and replace with light gauze and tape or nothing. It may get wet after 3 days but avoid soaking the dressing. If it gets wet, just lightly pat dry. It is important to always keep some gauze between skin folds, especially when you are sitting. Spend some time with the wound exposed when you are lying flat as the incision does wrinkle onto itself. Medications: - You should take Tylenol and an anti-inflammatory Celebrex as your primary pain control medications. If the Celebrex is too expensive or not covered, please call the office for another alternative (Advil/Ibuprofen or Naproxen/Aleve). - You have been prescribed a stronger pain medication Oxycodone for breakthrough pain, take as needed as prescribed. - You normally take Omeprazole - will continue with this prescription to help reduce stomach acid and reflux. - You will be taking Aspirin 81mg twice a day for DVT prevention unless instructed otherwise. - If you have constipation you should take Colace (which has been prescribed) or Miralax (which may be purchased [id number]). It takes most people 3-4 days to have a bowel movement. Follow-up: 2 weeks If you have any acute concerns or questions, please do not hesitate to contact the office at [phone]. You may contact Dr. Martinez with any questions after hours through the hospital at [phone] or on his cell phone at [phone]. Stand Alone Forms: Anesthesia Discharge Inst. Referrals: Dann Martinez MD [ [facility] ST[facility]FF PHYSICIAN] - Equipment/Supplies: Walker Activity:: Activity as Tolerated Remove Dressings/Wound Care:: Do Not Remove Shower/Bathe:: Cover Diet:: As Tolerated Discharge Orders Discharge Orders: Discharge Order (Routine); Ordered 01/06/21 Ordered By: Dann Martinez Discharge Data Discharge Date/Time-TO BE ENTERED AT DEPARTURE: 01/06/21 15:10 DS: Data Vitals/I&O Vitals and I&O: Intake & Output 01/05/21 01/05/21 01/06/21 11:59 23:59 11:59 Weight 88.904 kg 88.904 kg [facility] Active Problem List Varicose veins of lower extremity (Chronic) Sensorineural hearing loss, bilateral (Chronic 06/13/13) Non-alcoholic fatty liver disease (Chronic 01/05/05) Lumbago (Chronic) Increased BMI (Chronic) Gastroesophageal reflux disease with esophagitis (Chronic) Essential hypertension (Chronic 11/16/12) Diabetes mellitus (Chronic) Depressive disorder (Chronic) Hyperlipidemia (Chronic 04/05/12) Dysphonia (Chronic 11/28/13) Balance disorder (Acute) Degenerative joint disease of right hip (Chronic) Advance care planning (Acute) Medical History Bloating symptom (05/08/17) Degenerative joint disease of right knee previously treated with injections Surgical History (Updated 01/06/21 @ 07:47 by Ramiro Tarcy) 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 Throat cancer Maternal Grandmother Diabetes Paternal Grandmother Stroke Son Substance abuse PAST USE Alcohol abuse Daughter Alcohol abuse Depression Social History (Updated 04/01/20 @ 09:56 by Ursula Gray) Smoking/Tobacco Use Status: Never Second Hand Exposure: Yes Smoking risk assessment performed?: Yes Alcohol Intake: current Alcohol Intake frequency: 0-2 drinks per day Alcohol type: wine Drug use: Never Substance use type: does not use Adopted: No Caregiver/Support person: No Household members: none Housing: house Communication Needs: Hard of Hearing and Corrective Lenses Do you need help understanding health information?: Rarely Pets and animals: Yes Pets and animals: cat(s) Sexually active: No Do you think of yourself as: straight/heterosexual Current gender identity: female What is your relationship status?: How often do you talk on the phone with friends or family?: three or more times per week How often do you get together with friends or relatives?: once per week How often do you attend voodoo or zoroastrianism services?: decline to answer Do you belong to any clubs or organized social groups?: no Panel score (0-1 are the most socially isolated patients): 1 What type of physical activity do you participate in: walking and yoga Duration: 15-30 minutes/day Frequency: 1-2 times per week Brooke/Confucianism: None Special brooke needs: No Seatbelt use: always Helmet use: No Drive intox or ride w/intox public transit bus driver: No Do you feel safe at home: Yes Do you feel safe in your relationship?: Yes Documented by User: Dann Martinez MD 01/06/21 19:59 Date of service: 12/01/21 Time of Service: 12:56 Discharge Plan Disposition Patient Disposition: HOME Condition: Good Discharge Details Reason For Visit: right hip DJD Attending Provider: Dann Martinez Primary Care Provider: Sandra Baldwin Home Meds and New Rx's Prescriptions: New celecoxib [Celebrex] 200 mg capsule 200 mg PO BID Qty: 30 RF: 0 aspirin 81 mg tablet,delayed release (DR/EC) 81 mg PO BID 30 Days Qty: 60 RF: 0 acetaminophen 500 mg tablet 1,000 mg PO Q8H PRN Qty: 90 RF: 0 docusate sodium [Colace] 100 mg capsule 100 mg PO BID Qty: 30 RF: 0 oxycodone 5 mg tablet 2.5 - 5 mg PO Q6H PRN (Reason: severe post-operative pain) Qty: 12 RF: 0 Continued nystatin 100,000 unit/gram powder 1 applic TP TID PRNRF: 0 calcium carbonate-vitamin D3 [Caltrate with Vitamin D3] 1 EACH tablet 2 tab PO DAILY RF: 0 Metamucil 283 GM powder 1 tbs PO DAILY PRNRF: 0 ONETOUCH ULTRA TEST STRIPS 1 EACH strip 1 strip Miscellaneous DAILY Qty: 100 RF: 3 meclizine 25 mg tablet 25 mg PO TID PRN (Reason: dizziness) Qty: 30 RF: 0 (DME) lancets [OneTouch UltraSoft Lancets] Misc 1 ea Miscellaneous DAILY Qty: 100 RF: 4 (DME) Blood Glucose Test Strip See Rx Instructions .ROUTE .MEDSUPPLY Qty: 100 RF: 5 losartan-hydrochlorothiazide [Hyzaar] 100-25 mg tablet 1 tab PO DAILY Qty: 90 RF: 3 omeprazole 20 mg capsule,delayed release(DR/EC) 20 mg PO DAILY Qty: 90 RF: 4 lorazepam 0.5 mg tablet 0.5 mg PO BID PRN (Reason: anxiety) Qty: 30 RF: 2 fluconazole 150 mg tablet 150 mg PO QWEEK Qty: 12 RF: 2 bupropion HCl 300 mg tablet extended release 24 hr 300 mg PO DAILY Qty: 90 RF: 12 atenolol 25 mg tablet 25 mg PO DAILY Qty: 90 RF: 4 sertraline 100 mg tablet 100 mg PO DAILY Qty: 90 RF: 4 metformin 1,000 mg tablet extended release 24hr 1,000 mg PO DAILY Qty: 90 RF: 4 multivitamin Tablet 1 tab PO DAILY RF: 0 Discontinued aspirin 81 mg tablet,delayed release (DR/EC) 81 mg PO DAILY RF: 0 acetaminophen 500 mg tablet 1,000 mg PO Q8H PRN (Reason: pain) Qty: 90 RF: 3 Discharge Instructions Additional Instructions: Total Hip Discharge Instructions Activity: The most important activity is to walk. You should try to take short walks a few times a day. You have no restrictions on movement or positioning, but do not try to force what you do. You will find some stiffness and weakness with hip flexion (lifting your knee). Do not try to strengthen this too early, continue to practice walking and stairs and this will come. - Outpatient physical therapy can be helpful to help return you to a normal gait and improve your flexibility and strength. This can start around 2 weeks. For some patients, it?s not necessary. Usually this is determined at the time of discharge or at the first post-operative visit. - You should wear the HARPREET hose on both legs for 2 weeks. Dressing: Keep the surgical dressing in place for at least one week. After the first week it may be removed and replace with light gauze and tape or nothing. It may get wet after 3 days but avoid soaking the dressing. If it gets wet, just lightly pat dry. It is important to always keep some gauze between skin folds, especially when you are sitting. Spend some time with the wound exposed when you are lying flat as the incision does wrinkle onto itself. Medications: - You should take Tylenol and an anti-inflammatory Celebrex as your primary pain control medications. If the Celebrex is too expensive or not covered, please call the office for another alternative (Advil/Ibuprofen or Naproxen/Aleve). - You have been prescribed a stronger pain medication Oxycodone for breakthrough pain, take as needed as prescribed. - You normally take Omeprazole - will continue with this prescription to help reduce stomach acid and reflux. - You will be taking Aspirin 81mg twice a day for DVT prevention unless instructed otherwise. - If you have constipation you should take Colace (which has been prescribed) or Miralax (which may be purchased [id number]). It takes most people 3-4 days to have a bowel movement. Follow-up: 2 weeks If you have any acute concerns or questions, please do not hesitate to contact the office at [phone]. You may contact Dr. Martinez with any questions after hours through the hospital at [phone] or on his cell phone at [phone]. Stand Alone Forms: Anesthesia Discharge Inst. Referrals: Dann Martinez MD [ [facility] STAFF PHYSICIAN] - Equipment/Supplies: Walker Activity:: Activity as Tolerated Remove Dressings/Wound Care:: Do Not Remove Shower/Bathe:: Cover Diet:: As Tolerated Discharge Orders Discharge Orders: Discharge Order (Routine); Ordered 01/06/21 Ordered By: Dann Martinez Discharge Data Discharge Date/Time-TO BE ENTERED AT DEPARTURE: 01/06/21 15:10 DS: Summary Time Spent with Patient providing and/or coordinating discharge services: Less than 30 minutes Status at Discharge Functional status at discharge: uses cane/walker Overall status at discharge: patient is progressing back to baseline Mental Status: mental status grossly normal Speech and Movement: speech and movement normal Mood: congruent mood Affect: normal affect Exam Psych Mental Status: mental status grossly normal Speech and Movement: speech and movement normal Mood: congruent mood Affect: normal affect [facility] Active Problem List Varicose veins of lower extremity (Chronic) Sensorineural hearing loss, bilateral (Chronic 06/13/13) Non-alcoholic fatty liver disease (Chronic 01/05/05) Lumbago (Chronic) Increased BMI (Chronic) Gastroesophageal reflux disease with esophagitis (Chronic) Essential hypertension (Chronic 11/16/12) Diabetes mellitus (Chronic) Depressive disorder (Chronic) Hyperlipidemia (Chronic 04/05/12) Dysphonia (Chronic 11/28/13) Balance disorder (Acute) Degenerative joint disease of right hip (Chronic) Advance care planning (Acute) Medical History Bloating symptom (05/08/17) Degenerative joint disease of right knee previously treated with injections Surgical History (Updated 01/06/21 @ 07:47 by Ramiro Tracy) 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 Throat cancer Maternal Grandmother Diabetes Paternal Grandmother Stroke Son Substance abuse PAST USE Alcohol abuse Daughter Alcohol abuse Depression Social History (Updated 04/01/20 @ 09:56 by Ursula Gray) Smoking/Tobacco Use Status: Never Second Hand Exposure: Yes Smoking risk assessment performed?: Yes Alcohol Intake: current Alcohol Intake frequency: 0-2 drinks per day Alcohol type: wine Drug use: Never Substance use type: does not use Adopted: No Caregiver/Support person: No Household members: none Housing: house Communication Needs: Hard of Hearing and Corrective Lenses Do you need help understanding health information?: Rarely Pets and animals: Yes Pets and animals: cat(s) Sexually active: No Do you think of yourself as: straight/heterosexual Current gender identity: female What is your relationship status?: How often do you talk on the phone with friends or family?: three or more times per week How often do you get together with friends or relatives?: once per week How often do you attend voodoo or zoroastrianism services?: decline to answer Do you belong to any clubs or organized social groups?: no Panel score (0-1 are the most socially isolated patients): 1 What type of physical activity do you participate in: walking and yoga Duration: 15-30 minutes/day Frequency: 1-2 times per week Brooke/Confucianism: None Special brooke needs: No Seatbelt use: always Helmet use: No Drive intox or ride w/intox public transit bus driver: No Do you feel safe at home: Yes Do you feel safe in your relationship?: Yes
[2021-01-06] MEDS: Celecoxib 200 MG CAP 400 MG PO (08:18)
[2021-01-06] MEDS: Acetaminophen 500 MG TAB 1000 MG PO (08:21)
[2021-01-06] MEDS: Lactated Ringers 1,000 ML 80 ML IV (08:22)
[2021-01-06] MEDS: ceFAZolin 2 GM/50 ML BAG IVPB (10:10)
[2021-01-06] MEDS: Ketorolac 30 MG/ML VIAL (10:59)
[2021-01-06] MEDS: Bupivacaine 0.25% Pres-Free 30 ML VIAL (10:59)
--- NOTE | 2021-01-06 11:09 | DI.RAD_ITS ---
Exam(s) XR HIP RT IN OR EXAM: XR HIP RT IN OR CLINICAL HISTORY: RIGHT HIP DJD TECHNIQUE: 2D and realtime digital imaging was performed. CONTRAST MATERIAL: Refer to procedure report. COMPARISON: CR XR HIP PELVIS ADULT BL from 10/26/2020 CR XR HIP PELVIS ADULT BL from 10/26/2020 FINDINGS: Fluoroscopy was provided for Dr. Martinez during the performance of a placement of a right total hip prosthesis. Please refer to the procedure report for complete details. Ka,r=4.13 mGy IMPRESSION: RADIATION DOSE DELIVERED:
--- NOTE | 2021-01-06 11:27 | ROE_ITS ---
Date of service: 01/06/21 Time of Service: 11:27 Operative Note Operative Note DATE OF PROCEDURE: 01/06/21 PRE-OP DIAGNOSIS: Right Hip Osteoarthritis POST-OP DIAGNOSIS: same PROCEDURE: Right Anterior Total Hip Arthroplasty with Intraoperative Navigation SURGEON: Dann Martinez HAT BODY SORTER: Altagracia Ren Refer to Anesthesia Record ESTIMATED BLOOD LOSS: 150 PATHOLOGY: none sent TOURNIQUET TIME: 0 COMPLICATIONS: None Patient was transported to: PACU Patient's condition: stable Implants: 1. Depuy Rawlins Acetabular Component, 52mm 2. Depuy Acetabular Liner, [id number] 3. Depuy Corail Standard 125 degree Collared Femoral Stem, Size 12 4. Depuy Altrx Ceramic Femoral Head, Size 36+1.5mm Indications: I have seen Gretchen in clinic for symptoms of hip arthritis, confirmed with radiographic findings. She has exhausted nonoperative methods and was having significant limitations in daily function and desired better function and less pain. I discussed the technical details of a hip replacement. I explained the risks of the procedure to include, but not limited to, bleeding, infection, pain, stiffness, fracture, damage to nerves and vessels, damage to muscles and tendons, loosening, instability, leg length inequality, need for repeat procedure, blood clot and cardiopulmonary demise. Despite these risks, Gretchen elected to proceed. Findings: There was significant signs of arthritis throughout the hip. Procedure Description: Gretchen was greeted in the preoperative holding area where the correct side was identified and marked. The consent was reviewed with the patient and signed. The history and physical was updated. All questions were answered. She was taken back to the operating room. A spinal anesthestic was then administered. The feet were wrapped with cast padding and Coban and then placed into the boot liners and then into the boots. Care was taken to protect the skin and make sure the heels were fully down and the boots were stable. The patient was then positioned onto the HANA table. Both legs were held in a neutral position. SCDs were applied. The patient was then slid down onto a peroneal post. Prophylactic antibiotics in the form of Cefazolin were administered. 1g of Tranxemic Acid was given intravenously within 30 minutes of incision. The right leg was then prepped with Chloraprep and draped in a standard fashion. A second prep with Chloraprep was performed prior to placement of a shower-curtain type drape with Iodine impregnated skin protection. A timeout to confirm correct identity, side and site, procedure, allergies, anesthesia, and medical concerns was performed. An obliquely oriented incision was made starting lateral to the ASIS and running distal over the Tensor Fascia Blaire (TFL) muscle belly toward the fibular head, approximately 10cm. The skin and soft tissue was dissected sharply, through Elziabeth?s fascia, and to the fascia of the TFL. With the fascia and superior border of the IT band identified, the fascia was incised with a new knife just above any perforators from the IT band. The TFL muscle belly was bluntly dissected away from the fascia and moved laterally. The fat between TFL and rectus was identified to ensure the dissection was not within the TFL. Blunt dissection created space between abductors and the capsule and retractor was placed over the lateral femoral neck. The fibers of the rectus femoris tendon were identified and these were freed from the anterior capsule. A second cobra retractor was placed around the medial femoral neck. The TFL was further retracted laterally to show the deep fascia. Careful dissection through this layer identified three main crossing vessels of the lateral femoral circumflex. These were cauterized in multiple locations and then cut without any noticeable bleeding. The TFL was further released bluntly from the deep fascia to expose anterior hip capsule and fat The Thomas orthopaedic retractor was then placed beneath the TFL and against sartorius and medial soft tissues to protect and retract the soft tissues. A T-capsulotomy was then performed starting at the superior lateral acetabulum and moving distally to the intertrochanteric ridge. These capsular flaps were tagged with a No. 1 Ethibond and elevated from within. The capsular flaps were released to the shoulder of the lateral neck and to the lesser trochanter to give excellent visualization of the proximal femur. A neck osteotomy was performed using an oscillating saw based on preoperative templates. This cut started in the shoulder and of the lateral neck and exited medially. The saw was at all times directed medially to avoid injury to the greater trochanter. Gross traction was applied to the leg and the osteotomy opened. The femoral head was removed with a corkscrew, making sure to protect the TFL on its exit. Traction was released after head removal. This was measured on the back table to determine the starting reamer size. Portions of the rectus obscuring visualization were minimally elevated off the superior acetabulum. An anterior retractor was placed over the anterior wall between capsule and labrum and attached to the Gripper retraction system. The femur was rotated to 90 degrees and medial capsule was fully released until the lesser trochanter was palpable and visible; the femur was returned to 30 degrees. A posterior retractor was placed similarly between capsule and labrum. This provided excellent visualization. The contents of the cotyloid fossa were removed with electrocautery and the labrum was removed with a knife. There was a notable floor osteophyte. There was significant chondromalacia of the superior acetabulum. Acetabular reaming began with a 48mm reamer. This first reaming was directed anterior to posterior and medial to get down to the true floor. This was inspected and reamed until the true floor was reached. The anterior retractor was then released and entry and exit was provided by traction on the capsular flaps. I then reamed sequentially up to a 52mm reamer where good fit was obtained. The larger reamers were oriented based on anatomical reference of the anterior and lateral mendez to ensure proper abduction and anteversion. Positioning and size was confirmed with the fluoroscopy. A 52mm Depuy Rawlins acetabular component was selected. The acetabulum was reamed around the pe riphery with the selected acetabular size to prevent a rim fit. The deep tissues were irrigated. The acetabular component was then impacted in a position of about 40-45 degrees of abduction and 15-20 degrees of anteversion, using the patient?s anatomy as the ultimate landmark. Fluoroscopy was used to confirm this. There was excellent curriculum and instruction specialist of the acetabular component and the inserting handle was removed. The acetabular liner, Depuy [id number] polyethylene liner, was inserted and lined up with the tines of the acetabular component. There was no soft tissue interposition. The liner was then impacted into position and confirmed to be well-seated. A portion of the diamante-articular cocktail was then injected around the acetabulum into the capsule and periosteum. This cocktail consisted of 50cc of 0.25% Bupivicaine and 20cc of Exparel and 30mg of Ketorolac. The leg was rotated to 120 degrees. Any remaining medial capsule was released until the lesser trochanter was easily palpable. A retractor was placed medially. The lateral capsule was further released into the shoulder to allow access to the greater trochanter. A Le retractor was placed over the greater trochanter which allowed the trochanter to flip in front of the capsule for excellent exposure. The leg was brought down into maximal extension and 20 degrees of adduction while ensuring there was no impingement on the acetabulum. Any remnant capsule within the trochanter was released. Piriformis and obturator externis were identified and protected. There was excellent access to the proximal femur. The lateral neck remnant was removed with a rongeur. A blunt canal probe was used to identify the canal and trajectory for later broaching. A box osteotome initiated the broach course. A small curved rasp and a curved curette were used to work laterally. Broaching then began with a size 8 Corail broach. This was inserted manually around the trochanter and into the canal before mallet blows. The broach was seated to the neck cut level based on the neck cut and the preoperative template. Sequential broaching was continued with the [employer] pneumatic broaching device until a tight fit was obtained with good rotational control of the femur. A trial low 135 neck was inserted along with a +1.5 trial head. The leg was brought out of extension and adduction and then reduced with traction and internal rotation. The leg was stable anteriorly in a position of 30 degrees of extension and 90 degrees of external rotation. Fluoroscopy was used to ensure there was no fracture and the stem was seated well. Leg lengths were checked with an AP pelvis and pelvic reference points. [employer] navigation system was used to confirm appropriate positioning and leg length and offset. This seemed to accurately recreate the leg length but under offset. Thus, going up to a 125 standard would maintain leg length and increase offset. Once content with the desired offset and leg lengths, the leg was brought back into extension, external rotation and adduction. The periosteum and surrounding tissue was injected with remaining portion of the diamante-articular cocktail. The proximal femur was irrigated as well as the deep tissues. The Depuy Corail standard 125 degree collared stem, size 12, was then manually inserted into the proximal femur making sure to control rotation. It was then malleted into position with light blows, giving breaks to allow bone expansion and decrease risk of fracture. The selected Depuy Altrx Ceramic Head, size 36+1.5mm, was then placed onto the clean and dry trunnion and secured with impaction onto the tapered fit. The leg was brought back out of extension and adduction and reduced with traction and internal rotation. Stability was confirmed with no shuck at 90 degrees of external rotation and 30 degrees of extension. No impingement through range of motion arc. Final x-ray images were obtained with fluoroscopy to confirm adequate positioning and no intraoperative fracture. The deep tissues were thoroughly irrigated with Irrisept chlorhexadine solution. The second dose of TXA 1g was administered intravenously.The capsule was then reapproximated with the previously placed Ethibond sutures. The TFL fascia was finally closed with a No. 2 Stratafix, barbed suture. Deep tissues were then reapproximated with 0 Vicryl and a running 2-0 Vicryl. The skin was closed with a running 4-0 Monocryl in a subcuticular fashion. This was reinforced with skin glue. A Mepilex silver dressing was applied. At the end of the case, all counts were correct. Gretchen was transferred to the hospital bed without difficulty and suffering no apparent complication. Gretchen has a good prognosis. Physical therapy will start today and without restrictions, weight-bearing as tolerated. Aspirin 81mg BID will be used for DVT prophylaxis.
[2021-01-06] MEDS: fentaNYL 100 MCG/2 ML VIAL IVP (11:57)
--- NOTE | 2021-01-06 13:15 | W.ANESPOSTOP ---
Postoperative Evaluation Date, Time and Location Date Performed: 01/06/21 Time Performed: 13:15 Patient Location: Day Surgery Unit Vital Signs Most Recent Imported Vital Signs: Most Recent Vital Signs Temp Pulse Resp BP Pulse Ox 36.5 C 63 16 110/59 L 96 01/06/21 12:50 01/06/21 12:50 01/06/21 12:50 01/06/21 12:50 01/06/21 12:50 Pain Score Most Recent Pain Score: Most Recent Pain Score Pain Level 4 01/06/21 12:50 Assessment Mental Status: Awake (Alert & Oriented to Patient Baseline) Airway and Respiratory Function: Patent airway with normal (patient baseline) respiratory exam Cardiovascular Function: Hemodynamically Stable Hydration Status: Adequately Hydrated Nausea & Vomiting: No Nausea or Vomiting Pain: Pain is tolerable per patient Peripheral Nerve Block: Patient did not receive a nerve block
[2021-01-06] MEDS: oxyCODONE 5 MG TAB PO (13:33)
--- NOTE | 2021-01-06 13:50 | PT.INIE ---
Date of service: 01/06/21 Time of Service: 13:50 PT Notes Visit Reasons: right hip DJD Day Surgery Unit Physical Therapy Initial Evaluation Date: 01/06/2021 Referring Doctor: NEVAEH Spangler PT Orders: PT CONSULT: Status post Ortho surgery Precautions: Fall. Standard. WBAT on right LE. Patient Profile/Admitting Diagnosis: Gretchen is a 80-year-old female with primary unilateral osteoarthritis of the right hip and is status post right total hip arthroplasty on postoperative day 0. PMHX: Active Problem List (Updated 12/23/20 @ 13:23 by Altagracia Ren) Advance care planning (Acute) Degenerative joint disease of right hip (Chronic) Balance disorder (Acute) Dysphonia (Chronic 11/28/13) Hyperlipidemia (Chronic 04/05/12) Depressive disorder (Chronic) Diabetes mellitus (Chronic) Essential hypertension (Chronic 11/16/12) Gastroesophageal reflux disease with esophagitis (Chronic) Increased BMI (Chronic) Lumbago (Chronic) Non-alcoholic fatty liver disease (Chronic 01/05/05) Sensorineural hearing loss, bilateral (Chronic 06/13/13) Varicose veins of lower extremity (Chronic) Medical History (Updated 12/23/20 @ 13:23 by Altagracia Ren) Bloating symptom (05/08/17) Degenerative joint disease of right knee previously treated with injections Surgical History (Updated 12/23/20 @ 13:23 by Altagracia Ren) History of total left hip replacement (10/15/19) Hx of cataract surgery s/p bilateral cataract extractions Hx of colonoscopy Hx of esophagogastroduodenoscopy Ligation of fallopian tube Status post arthroscopy of right knee Social History/Home Situation: Lives alone in a private home with 1 step to enter without a rail. Has a flight of steps to the second floor of her house and another flight to the cellar. Son and sons's family live on the floor above her. She states today that she will be staying on the main floor of the house as she recovers and will have the help of her relatives who live across from her for anything that she needs. Equipment Owned/DME: None Subjective: Indicates that she is doing better so far, compared to when she had her left hip done. Denies dizziness, headache, and chest pain throughout. Objective: General Observation: IV access in the left UE. Mepilex Ag over surgical incision. Bilateral TEDS to legs. Mental Status: Alert and oriented x 4 Pain: 3/10 in the R hip with movement at rest, 4-5/10 with weight bearing Vital Signs: WNL as closely monitored by Nurse Rubio ROM: Right Upper Extremity: Shoulder Flexion WFL. Shoulder abduction WFL. Elbow flexion WFL. Wrist flexion WFL. Opening and closing of hand WFL. Left Upper Extremity: Shoulder Flexion WFL. Shoulder abduction WFL. Elbow flexion WFL. Wrist flexion WFL. Opening and closing of hand WFL. Right Lower Extremity: Hip flexion WFL. Hip abduction WFL. Knee flexion WFL. Ankle dorsiflexion WFL. Ankle plantarflexion WFL. Left Lower Extremity: Hip flexion WFL. Hip abduction WFL. Knee flexion WFL. Ankle dorsiflexion WFL. Ankle plantarflexion WFL. Strength: Right Upper Extremity: Shoulder flexors 5/5. Shoulder abductors 5/5. Elbow flexors 5/5. Elbow extensors 5/5. Fiberglass Product Tester strong. Left Upper Extremity: Shoulder flexors 5/5. Shoulder abductors 5/5. Elbow flexors 5/5. Elbow extensors 5/5. Fiberglass Product Tester strong. Right Lower Extremity: Hip flexors 4/5. Hip abductors 4/5. Knee flexors 5/5. Knee extensors 4/5. Ankle dorsiflexors 5/5. Ankle plantarflexors 5/5. Left Lower Extremity: Hip flexors 5/5. Hip abductors 5/5. Knee flexors 5/5. Knee extensors 5/5. Ankle dorsiflexors 5/5. Ankle plantarflexors 5/5. Sensation: Intact as to pain and pressure on bilateral lower extremities. Denies numbness and or tingling in B LE. Bed Mobility/Transfers: Supine to sit supervision Sit to supine supervision Sit to stand standby assist Stand to sit standby assist Bed to chair standby assist Chair to bed standby assist Gait: Tolerated level surface ambulation of 20 feet using front wheel walker with step through gait pattern requiring only standby assist with minimal assist provided for posture and walker management. Reported 4?5/10 pain in the right hip that resolved with rest. No LOB. No SOB. Denies headache, chest pain, and dizziness throughout activity. Stairs: Negotiated 6 x 4 inch steps and 4 x 6 inch steps while holding onto bilateral rails with step to gait pattern requiring contact-guard assist. Minimal verbal cues provided for safe technique. Balance: Static Sitting: Normal Dynamic Sitting: Normal Static Standing: Fair Dynamic Standing: Fair Special Tests: Mobility Limitations Standardized Measure [facility] 6 clicks Basic Mobility Inpatient Short Form: Raw Score: 22 CMS Score: 21% deficit Informed Consent/Education: Patient instructed in purpose of PT consult and plan of care. Assessment: Gretchen demonstrates functional mobility decline requiring the use of a front-wheeled walker for all mobility ADL performance, difficulty with walking, impairment in balance, increased risk for falls due to postoperative status. Gretchen is a 80-year-old female with primary unilateral osteoarthritis of the left hip and is status post left total hip arthroplasty on postoperative day 0. Patient presents with clinical signs and symptoms consistent with current/admitting diagnoses that have resulted to mobility limitations, and gait instability as demonstrated by the following impairment level findings: 1. Decreased strength to right hip major muscle groups 2. Impaired standing balance 3. Impaired activity tolerance 4. Pain in R hip at 4-5/10 with weight bearing Impairments are contributing to the following functional limitations: 1. Inability to safely ambulate without assistive device 2. Increase completion time for mobility ADL performance 3. Increased fall risk 4. Inability to negotiate steps alone safely Patient is assessed as a complexity based on the following: History: 80-year-old female with impairment level findings, functional limitations, and past medical history as indicated above Examination: Demonstrable impairment in strength, balance, and mobility level with underlying impairments and functional limitations as documented above Presentation: Evolving Decision Makin moderate complexity Goals: N/A. PT evalaution and 1 treatment session only for functional mobility training and HEP instruction. Plan of Care/Treatment Plan: N/A. PT evalaution and 1 treatment session only for functional mobility training and HEP instruction. DISCHARGE RECOMMENDATIONS: [] Home with no services [] [X] Home with services. Home when medically cleared by orthopedic surgeon. Outpatient PT services as recommended in order to regain prior independent mobility level. [] Home with outpatient PT [] [] SNF for continued rehabilitation [] [] [facility] [] [] SNF versus LTC based on ability to participate and progress [] TREATMENT CODE/TIME: 44046 x 20 minutes, 89913 x 22 minutes beginning at 13:50 PM. Thank you for the opportunity to participate in the care of this patient. Barbara Garnica PT, DPT, CLT [facility] [place], [place]
== END 2021-01-06 15:10 | disposition home or self-care (01) ==
PROVIDERS: PCP Family Medicine; Visit Provider Student in an Organized Health Care Education/Training Program
PROC: (CPT 27130; principal; 2021-01-06 10:15)
DX: M16.11 Unilateral primary osteoarthritis, right hip (principal); E11.9 Type 2 diabetes mellitus without complications; K21.9 Gastro-esophageal reflux disease without esophagitis; K76.0 Fatty (change of) liver, not elsewhere classified; I10 Essential (primary) hypertension
CPT/HCPCS: 20985; 27130; C1776; 36415; 86850; 86900; 86901; 97162; 97530; 73501; J0690; J1100; J1885; J2370; J2405; J2704; J3010

== ENCOUNTER 2021-01-18 11:16 | Outpatient (CLI) | payer MEDICARE, OTHER, SELFPAY ==
--- NOTE | 2021-01-18 11:15 | DI.RAD_ITS ---
Exam(s) XR HIP RT COMPLETE AP PELVIS EXAM: XR HIP RT COMPLETE AP PELVIS CLINICAL HISTORY: 1st post op R ARTEMIO. TECHNIQUE: 2D digital imaging was performed. COMPARISON: CR XR HIP PELVIS ADULT BL from 10/26/2020 FINDINGS: Satisfactory position alignment of the recently placed right hip prosthesis. Fracture or loosening e vident. Opposite-left hip prosthesis also appears stable. IMPRESSION: DATA REPOSITORY: RADIATION DOSE DELIVERED:
== END 2021-01-18 11:17 | disposition home or self-care (01) ==
LOC: DIORS 11:16
PROVIDERS: PCP Family Medicine; Referring Provider Family Medicine; Visit Provider Student in an Organized Health Care Education/Training Program
DX: Z96.641 Presence of right artificial hip joint (principal); Z47.1 Aftercare following joint replacement surgery
CPT/HCPCS: 73502

== ENCOUNTER → 2021-02-25 11:06 | Outpatient (BNVA) | payer MEDICARE, OTHER, SELFPAY | PROVIDERS: PCP Family Medicine; Referring Provider Family Medicine; Visit Provider Student in an Organized Health Care Education/Training Program | DX: Z47.1 Aftercare following joint replacement surgery (principal); Z96.641 Presence of right artificial hip joint ==

== ENCOUNTER 2021-04-27 16:34 | Outpatient (REF) | payer MEDICARE, SELFPAY ==
[2021-04-27 20:00] LABS: Microalb ug/mg Crea 19.3 ug/mg Cr
== END 2021-04-27 16:35 | disposition home or self-care (01) ==
LOC: LBN 16:34
PROVIDERS: PCP Family Medicine; Visit Provider Family Medicine
DX: E11.9 Type 2 diabetes mellitus without complications (principal)
CPT/HCPCS: 82043; 82570

== ENCOUNTER → 2021-05-17 12:59 | Outpatient (BNVA) | payer MEDICARE, SELFPAY | PROVIDERS: PCP Family Medicine; Visit Provider Student in an Organized Health Care Education/Training Program | DX: Z47.1 Aftercare following joint replacement surgery (principal); Z96.641 Presence of right artificial hip joint ==

== ENCOUNTER 2021-06-04 01:02 | Outpatient (CLI) | payer MEDICARE, SELFPAY ==
--- NOTE | 2021-06-04 06:54 | DI.US_ITS ---
Exam(s) MG MAMMO DIAGNOSTIC BI US BREAST LT LIMITED EXAM: MG MAMMO DIAGNOSTIC BI CLINICAL HISTORY: left breast changeS,LT BREAST LUMP,N63.20,NEW ROPINESS. COMPARISON: 2012 through 2017 TECHNIQUE: Craniocaudal and mediolateral oblique Full Field Digital Mammography views of both breast s with Computer Aided Diagnosis followed by Tomosynthesis and left breast ultrasound. FINDINGS: Mammography/Tomosynthesis: Masses/Architectural Distortion: None seen. Microcalcifications: No suspicious pleomorphic-type are seen. Skin Thickening/Nipple Retraction: None. Left breast US: Echotexture: Normal appearance of the glandular tissue. Shadowing: No suspicious foci. Cyst: None. Solid lesions: None seen. Ductal dilation: None. IMPRESSION: 1. No evidence of malignancy is noted. 2. Unless there is more urgent need, follow-up screening mammography is recommended, as per [place] [employer] guidelines. BI-RADS Category 1 - Negative Breast Density - Category A - Almost entirely fatty A negative radiographic report should not delay biopsy if a dominant or clinically suspicious mass is present. Up to ten percent of cancers are not identified on mammography. A negative report may reinforce clinical impression. Adenosis and dense breasts may obscure an underlying neoplasm. False positive reports average 6 to 10%. Patient will receive a letter notifying them of these results.
== END 2021-06-04 01:22 ==
PROVIDERS: PCP Family Medicine; Visit Provider Family Medicine
DX: N63.22 Unspecified lump in the left breast, upper inner quadrant (principal); N64.59 Other signs and symptoms in breast
CPT/HCPCS: 76642; 77062; 77066; G0279

== ENCOUNTER 2021-06-19 11:21 | Outpatient (REF) | payer MEDICARE, SELFPAY | END 2021-06-19 11:22 | disposition home or self-care (01) | LOC: LBN 11:21 | PROVIDERS: PCP Family Medicine; Visit Provider Physical Therapy Assistant | DX: L98.8 Other specified disorders of the skin and subcutaneous tissue (principal) | CPT/HCPCS: 87077; 87070; 87186; 87205 ==

== ENCOUNTER 2021-08-31 13:42 | Outpatient (CLI) | payer MEDICARE, SELFPAY ==
--- NOTE | 2021-08-31 13:30 | DI.RAD_ITS ---
Exam(s) XR KNEE RT 3V AP,LAT,YAIMA EXAM: XR KNEE RT 3V AP,LAT,YAIMA CLINICAL HISTORY: R knee pain. TECHNIQUE: 2D digital imaging was performed of the right knee. Three views obtained. AP, lateral an d PA tunnel views were obtained. COMPARISON: No priors for comparison. FINDINGS: BONES: No acute fracture is present. No bony destructive lesion is seen. JOINTS: There is moderate narrowing of the medial femoral tibial joint. Marginal osteophytes are see n at the posterior patella and the medial femoral tibial joint. There is a small joint effusion. SOFT TISSUE: Normal. IMPRESSION: [id number] degenerative changes of the right knee. DATA REPOSITORY: RADIATION DOSE DELIVERED:
== END 2021-08-31 13:43 | disposition home or self-care (01) ==
LOC: DIORS 13:42
PROVIDERS: PCP Family Medicine; Referring Provider Family Medicine; Visit Provider Physician Assistant
DX: M17.11 Unilateral primary osteoarthritis, right knee
CPT/HCPCS: 20610; 73562; J1040

== ENCOUNTER 2022-02-11 10:36 | Outpatient (CLI) | payer MEDICARE, SELFPAY ==
--- NOTE | 2022-02-11 10:15 | DI.RAD_ITS ---
Exam(s) XR HIP RT AP LAT ONLY EXAM: XR HIP RT AP LAT ONLY INDICATION: annual f/u R ARTEMIO. COMPARISON: CR XR HIP RT COMPLETE AP PELVIS from 01/18/2021 TECHNIQUE: 2D digital imaging was performed. Two views. FINDINGS: There has been no change in the alignment of the right hip prosthesis or appearance of the surroundin g bone. DATA REPOSITORY: RADIATION DOSE DELIVERED:
== END 2022-02-11 10:37 | disposition home or self-care (01) ==
LOC: DIORS 10:36
PROVIDERS: PCP Family Medicine; Referring Provider Family Medicine; Visit Provider Student in an Organized Health Care Education/Training Program
DX: Z96.641 Presence of right artificial hip joint (principal)
CPT/HCPCS: 99213; 73502

== ENCOUNTER 2022-02-15 03:17 | Outpatient (CLI) | payer MEDICARE, SELFPAY ==
[2022-02-15 10:40] LABS: ALT 28 U/L (14-59); AST 21 U/L (15-37); Albumin 4.1 g/dL (3.4-5.0); Alkaline Phosphatase 69 U/L (46-116); Anion Gap 7.3 mmol/L (3-11); BUN 15 mg/dL (7-18); Bilirubin, Total 0.6 mg/dL (0.2-1.0); CO2 31.7 mmol/L (21.0-32.0); CREATININE 0.8 mg/dL (0.55-1.02); Calcium 9.7 mg/dL (8.5-10.1); Chloride 102 mmol/L (98-107); Glucose 167 mg/dL (74-106); Potassium 4.2 mmol/L (3.5-5.1); Sodium 141 mmol/L (136-145); Total Protein 7.7 g/dL (6.4-8.2)
[2022-02-15 10:41] LABS: COMMENT (LAB VIEW ONLY) 94.52 mg/dL; Microalb ug/mg Crea 19.9 ug/mg Cr
[2022-02-15 10:57] LABS: Hemoglobin A1C 5.9 % (<5.7)
== END 2022-02-15 03:18 | disposition home or self-care (01) ==
LOC: LBO 03:18
PROVIDERS: PCP Family Medicine; Visit Provider Family Medicine
DX: E11.9 Type 2 diabetes mellitus without complications (principal); K21.00 Gastro-esophageal reflux disease with esophagitis, without bleeding
CPT/HCPCS: 36415; 80053; 82043; 82570; 83036

== ENCOUNTER 2023-03-09 11:06 | Emergency (ER) | payer MEDICARE, SELFPAY ==
[2023-03-09 11:10] VITALS: BP 163/84; PULSE 81; RESP 16; TEMP 36.3; O2SAT 96
--- NOTE | 2023-03-09 11:15 | RT.EKG_ITS ---
APPROVED REPORT Exam: Resting ECG Reason for Exam: dizziness Patient Location: E HR:65 bpm ECG Measurements Heart Rate 65 AXIS OK 178 P 74 QRSd 89 QRS 50 QT 404 T 70 QTc 419 Conclusion Sinus rhythm...normal P axis, V-rate 60- 99
--- NOTE | 2023-03-09 11:24 | W.ED.GENAD ---
HPI General Mode of arrival: ambulatory. Date/Time Provider Initiated Documentation: 03/09/23 11:09. Limitations to Documentation: no limitations. Information obtained by: patient, RN notes reviewed and old records reviewed. HPI Narrative: 82-year-old female presents to the ER with a chief complaint of dizziness, cough with wheezing for the last 10 days. She also reports some abdominal pain with coughing. She states that today she got really dizzy that she is in a pass out. She denies any chest pain. She does have a history of degenerative joint disease, multiple surgeries. She was seen in urgent care 2 days ago and had a negative rapid COVID flu swab. She does have some anterior wheezing with auscultation bilaterally. Posterior aspect is clear. Abdomen is soft to palpation she does have a little bit of right lower quadrant tenderness which she reports was due to constipation is improved after having a bowel movement. Related Data Home Medications Medication Instructions Recorded Confirmed calcium carbonate 600 mg-vitamin 2 tab PO DAILY 04/27/12 03/09/23 D3 20 mcg (800 unit) tablet (Caltrate with Vitamin D3) psyllium (Metamucil) 1 tbs PO DAILY PRN 03/17/14 03/09/23 meclizine 25 mg tablet 25 mg PO TID PRN dizziness #30 06/17/18 03/09/23 tab-caps blood sugar diagnostic (Blood #100 ea 06/24/19 03/09/23 Glucose Test strips) lancets (OneTouch UltraSoft #100 ea 06/24/19 03/09/23 Lancets) acetaminophen 500 mg tablet 1,000 mg (2 x 500 mg) PO Q8H PRN 01/06/21 03/09/23 pain #90 tabs fluticasone propionate 50 2 spray intranasal DAILY #47.4 03/02/22 03/09/23 mcg/actuation nasal grams spray,suspension lorazepam 0.5 mg tablet 0.5 mg PO BID PRN anxiety #30 03/02/22 03/09/23 tab-caps losartan 100 1 tab PO DAILY #90 tab-caps 03/02/22 03/09/23 mg-hydrochlorothiazide 25 mg tablet (Hyzaar) nystatin 100,000 unit/gram topical 1 applic topical TID PRN yeast #60 03/02/22 03/09/23 powder grams omeprazole 20 mg capsule,delayed 20 mg PO DAILY #90 tab-caps 03/02/22 03/09/23 release mirabegron 50 mg tablet,extended 50 mg PO DAILY #90 tabs 06/02/22 03/09/23 release 24 hr atenolol 25 mg tablet 25 mg PO DAILY #90 tabs 11/21/22 03/09/23 bupropion HCl 300 mg 24 hr tablet, 300 mg PO DAILY #90 tab-caps 11/21/22 03/09/23 extended release sertraline 100 mg tablet 100 mg PO DAILY #90 tabs 11/21/22 03/09/23 oseltamivir 75 mg capsule (Tamiflu) 75 mg PO BID 5 days #10 caps 03/09/23 Previous Rx's Medication Instructions Recorded meclizine 25 mg tablet 25 mg PO TID PRN dizziness #30 06/17/18 tab-caps blood sugar diagnostic (Blood #100 ea 06/24/19 Glucose Test strips) lancets (OneTouch UltraSoft #100 ea 06/24/19 Lancets) acetaminophen 500 mg tablet 1,000 mg (2 x 500 mg) PO Q8H PRN 01/06/21 pain #90 tabs fluticasone propionate 50 2 spray intranasal DAILY #47.4 03/02/22 mcg/actuation nasal grams spray,suspension lorazepam 0.5 mg tablet 0.5 mg PO BID PRN anxiety #30 03/02/22 tab-caps losartan 100 1 tab PO DAILY #90 tab-caps 03/02/22 mg-hydrochlorothiazide 25 mg tablet (Hyzaar) nystatin 100,000 unit/gram topical 1 applic topical TID PRN yeast #60 03/02/22 powder grams omeprazole 20 mg capsule,delayed 20 mg PO DAILY #90 tab-caps 03/02/22 release mirabegron 50 mg tablet,extended 50 mg PO DAILY #90 tabs 06/02/22 release 24 hr atenolol 25 mg tablet 25 mg PO DAILY #90 tabs 11/21/22 bupropion HCl 300 mg 24 hr tablet, 300 mg PO DAILY #90 tab-caps 11/21/22 extended release sertraline 100 mg tablet 100 mg PO DAILY #90 tabs 11/21/22 oseltamivir 75 mg capsule (Tamiflu) 75 mg PO BID 5 days #10 caps 03/09/23 Allergies Allergy/AdvReac Type Severity Reaction Status Date / Time benzonatate Allergy Throat Verified 03/09/23 11:16 [From Pallaviwilliss[facility]] feels like its closing General Stated Complaint: Dizzy/Sync DALTON: 3 Review of Systems All systems reviewed & are unremarkable except as noted in HPI and below Constitutional Constitutional: Reports as per HPI Exam Narrative Exam Narrative: Constitutional: Alert and oriented x3. Appears stated age. Normal body habitus. Head: Normocephalic, no trauma. Eyes: Pupils PERRL, Red reflex noted, EOM's intact. Eyelids symmetrical without lesions, discharge, or swelling. ENT: Bilateral TM's WNL, External ear normal to inspection, no mastoid TTP, swelling, or erythema, Nasal turbinates WNL, no nasal discharge. Normal dentition, Posterior pharynx WNL, no exudate. Chest: RRR, Normal S1, S2, distal pulses intact. Resp: Lungs wheezes noted anteriorly bilateral. Clear to auscultation and posterior aspect. Abdomen: Soft, non-distended, Normoactive bowel sounds all 4 quads. Musculoskeletal: Normal gait, 5/5 strength to all four extremities. Skin: No suspicious rashes or lesions. Capillary refill less than 2 sec. Neurologic: Cranial nerves II-XII intact. Alert and oriented x 3. Motor: No deficits noted. Sensory: Intact bilaterally all 4 extremities. Reflexes: DTR's intact bilaterally.. Hematologic/Lymphatic: No ecchymosis, no lymphadenopathy. Course Vital Signs Vital signs: Vital Signs Temperature 36.3 C L 03/09/23 11:10 Pulse 81 03/09/23 11:10 Respiratory Rate 16 03/09/23 11:10 Blood Pressure 163/84 H 03/09/23 11:10 Pulse Oximetry 96 03/09/23 11:10 Temperature 36.3 C L 03/09/23 11:10 Temperature Source Temporal Artery Scan 03/09/23 11:10 Pulse 81 03/09/23 11:10 Respiratory Rate 16 03/09/23 11:10 Respiratory Effort Non-Labored, Short of Breath 03/09/23 11:15 Blood Pressure 163/84 H 03/09/23 11:10 Blood Pressure Position Sitting 03/09/23 11:10 Pulse Oximetry 96 03/09/23 11:10 Oxygen Delivery Method Room Air 03/09/23 11:10 Oxygen Flow Rate 0 03/09/23 11:10 Pain Level 7 03/09/23 11:10 Medical Decision Making 82-year-old female presents to the ER with a chief complaint of dizziness, cough with wheezing for the last 10 days. She also reports some abdominal pain with coughing. She states that today she got really dizzy that she is in a pass out. She denies any chest pain. She does have a history of degenerative joint disease, multiple surgeries. She was seen in urgent care 2 days ago and had a negative rapid COVID flu swab. She does have some anterior wheezing with auscultation bilaterally. Posterior aspect is clear. Abdomen is soft to palpation she does have a little bit of right lower quadrant tenderness which she reports was due to constipation is improved after having a bowel movement. EKG was reviewed by Dr. Muir and myself ER attending, no ischemic changes, No leukocytosis, CMP shows BUN 19 creatinine 0.8, GFR 74 glucose 203 magnesium 1.7, will treat that with 400 mg p.o. magnesium. Initial troponin less than 50 positive for flu A. Will give an albuterol inhaler, Tessalon Perles and Tamiflu. This text was generated using [employer] dictation system, please disregard any oddities of phrase or misspellings. Lab Data Lab results reviewed: Yes I reviewed the patient's lab results. Labs: Laboratory Tests Range/Units 03/09/23 03/09/23 11:36 12:22 WBC (4.4-10.8) 10^3/uL 7.52 RBC (3.93-5.22) 10^6/uL 5.14 Hgb (11.2-15.7) g/dL 15.6 Hct (36.0-46.0) % 43.8 MCV (80-95) fL 85 MCH (27.0-33.0) pg 30.4 MCHC (32.0-36.0) % 35.6 RDW (11.7-14.6) % 12.6 Plt Count (130-400) 10^3/uL 184 MPV (8.0-11.0) fL 10.0 Sodium (136-145) mmol/L 142 Potassium (3.5-5.1) mmol/L 3.7 Chloride (98-107) mmol/L 104 Carbon Dioxide (21.0-32.0) mmol/L 29.5 Anion Gap (3-11) mmol/L 8.5 BUN (7-18) mg/dL 19 H Creatinine (0.55-1.02) mg/dL 0.8 Est GFR (CKD-EPI 2020) (mL/min/1.73m2) 74.44 Glucose (74-106) mg/dL 203 H Calcium (8.5-10.1) mg/dL 9.1 Magnesium (1.8-2.4) mg/dL 1.7 L Total Bilirubin (0.2-1.0) mg/dL 0.8 AST (15-37) U/L 21 ALT (14-59) U/L 30 Alkaline Phosphatase (46-116) U/L 58 Troponin I (< or =60) ng/L < 50 Total Protein (6.4-8.2) g/dL 7.5 Albumin (3.4-5.0) g/dL 3.9 COVID-19 Source Nasopharynx SARS-CoV-2 (PCR) (Negative) Negative Influenza Type A (PCR) (Negative) Positive A Influenza Type B (PCR) (Negative) Negative RSV (PCR) (Negative) Negative Quality:SDOH Health Related Social Needs: No Data to Display PFSH All Active Problems (Updated 03/09/23 @ 14:11 by Leatha Rivas NP) Hypomagnesemia (Acute) Influenza A (Acute) Nail dystrophy (Acute) Change in voice (Acute) Hip abductor tendonitis (Acute) Left breast lump (Acute) Varicose veins of lower extremity (Chronic) Sensorineural hearing loss, bilateral (Chronic 06/13/13) Non-alcoholic fatty liver disease (Chronic 01/05/05) 4 small liver cysts.; elevated LFT's 01/13 Lumbago (Chronic) Increased BMI (Chronic) Gastroesophageal reflux disease with esophagitis (Chronic) Essential hypertension (Chronic 11/16/12) Diabetes mellitus (Chronic) Depressive disorder (Chronic) w/ anxiety attacks; grief-loss of partner 2000 Hyperlipidemia (Chronic 04/05/12) Dysphonia (Chronic 11/28/13) Balance disorder (Acute) Advance care planning (Acute) Medical History Degenerative joint disease of right knee previously treated with injections Bloating symptom (05/08/17) Surgical History 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 Throat cancer Maternal Grandmother Diabetes Paternal Grandmother Stroke Son Substance abuse PAST USE Alcohol abuse Daughter Alcohol abuse Depression Social History Smoking/Tobacco Use Status: Never Second Hand Exposure: Yes Smoking risk assessment performed?: Yes Alcohol Intake: current Alcohol Intake frequency: a few times a week Alcohol type: beer, wine and hard liquor Drug use: Occasionally Substance use type: marijuana Adopted: No Caregiver/Support person: No Household members: family Housing: house Communication Needs: Hard of Hearing and Corrective Lenses Do you need help understanding health information?: Rarely Pets and animals: Yes Pets and animals: cat(s) and dog(s) Sexually active: No Do you think of yourself as: straight/heterosexual Current gender identity: female What is your relationship status?: How often do you talk on the phone with friends or family?: once per week How often do you get together with friends or relatives?: once per week How often do you attend christian or pentecostalism services?: decline to answer Do you belong to any clubs or organized social groups?: no Panel score (0-1 are the most socially isolated patients): 0 What type of physical activity do you participate in: walking Duration: 30-45 minutes/day Frequency: daily Brooke/Taoism: None Special brooke needs: No Seatbelt use: always Drive intox or ride w/intox driver sales: No Do you feel safe at home: Yes Do you feel safe in your relationship?: Yes PAWSS Have you Been Recently Intoxicated or Drunk Within the Last 30 days?: No Have you Ever Experienced Previous Episodes of Alcohol Withdrawal?: No Have you ever Experienced Withdrawal Seizures?: No Have you ever Experienced Delirium Tremens(DT)s?: No Have you ever undergone Alcohol Rehabilitation Treatment (i.e, inpt ot outpatient treatment programs)?: No Have you ever Experienced Blackouts?: No Have you ever Combined Alcohol with other Downers within the last 90 days?: No Have you ever Combined Alcohol with any other Substance of Abuse during the last 90 days?: No Result: 0 Discharge Plan Disposition Patient Disposition: Home Condition: Stable Discharge Details Clinical Impression: Influenza A, Hypomagnesemia Primary Care Provider: Sandra Baldwin ED Provider: Leatha Rivas [place] Meds and New Rx's Prescriptions: New oseltamivir [Tamiflu] 75 mg capsule 75 mg PO BID 5 Days Qty: 10 0RF No Action Myrbetriq 50 mg tablet extended release 24 hr 50 mg PO DAILY Qty: 90 4RF lorazepam 0.5 mg tablet 0.5 mg PO BID PRN (Reason: anxiety) Qty: 30 2RF Rx Instructions: month supply losartan-hydrochlorothiazide [Hyzaar] 100-25 mg tablet 1 tab PO DAILY Qty: 90 3RF nystatin 100,000 unit/gram powder 1 applic TP TID PRN (Reason: yeast) Qty: 60 4RF Rx Instructions: apply under the breasts as needed omeprazole 20 mg capsule,delayed release(DR/EC) 20 mg PO DAILY Qty: 90 4RF fluticasone propionate 50 mcg/actuation spray,suspension 2 spray intranasal DAILY Qty: 47.4 5RF Rx Instructions: administer into each nostril calcium carbonate-vitamin D3 [Caltrate with Vitamin D3] 1 EACH tablet 2 tab PO DAILY Metamucil 283 GM powder 1 tbs PO DAILY PRN ONETOUCH ULTRA TEST STRIPS 1 EACH strip 1 strip Miscellaneous DAILY Qty: 100 3RF Rx Instructions: E11.9 meclizine 25 mg tablet 25 mg PO TID PRN (Reason: dizziness) Qty: 30 0RF (DME) lancets [OneTouch UltraSoft Lancets] Misc 1 ea Miscellaneous DAILY Qty: 100 4RF Rx Instructions: E11.9 daily testing (DME) Blood Glucose Test Strip See Rx Instructions .ROUTE .MEDSUPPLY Qty: 100 5RF Rx Instructions: daily; E11.9 sertraline 100 mg tablet 100 mg PO DAILY Qty: 90 4RF bupropion HCl 300 mg tablet extended release 24 hr 300 mg PO DAILY Qty: 90 12RF atenolol 25 mg tablet 25 mg PO DAILY Qty: 90 4RF acetaminophen 500 mg tablet 1,000 mg PO Q8H PRN Qty: 90 0RF Rx Instructions: Take two tablets up to every 8 hours as needed for pain Discharge Instructions Instructions: H1N1 Influenza (ED), Hypomagnesemia (ED) Additional Instructions: Please take a magnesium supplement which she can get [id number] for the next 3 to 5 days. Follow-up with your PCP regarding the low magnesium level. The Fluvid swab is positive for influenza A. I do suspect that this is what is causing your symptoms. You may take the Tamiflu twice a day for the next 5 days this may or may not shorten the course of the flu. Otherwise it is symptomatic treatment. Please increase oral fluids. Use the albuterol inhaler 1 or 2 puffs every 4-6 hours. Follow up with primary care provider in 3-5 days. Return to ED sooner if any worsening or concerns. Increase oral fluids. Referrals: Sandra Baldwin MD, [place] [Primary Care Provider] - 3 days Discharge Data Discharge Date/Time-TO BE ENTERED AT DEPARTURE: 03/09/23 14:27
[2023-03-09 11:47] LABS: HCT 43.8 % (36.0-46.0); HGB 15.6 g/dL (11.2-15.7); MCH 30.4 pg (27.0-33.0); MCHC 35.6 % (32.0-36.0); MCV 85 fL (80-95); Platelet Count 184 10^3/uL (130-400); RBC 5.14 10^6/uL (3.93-5.22); RDW 12.6 % (11.7-14.6); WBC 7.52 10^3/uL (4.4-10.8)
[2023-03-09 12:05] LABS: ALT 30 U/L (14-59); AST 21 U/L (15-37); Albumin 3.9 g/dL (3.4-5.0); Alkaline Phosphatase 58 U/L (46-116); Anion Gap 8.5 mmol/L (3-11); BUN 19 mg/dL (7-18); Bilirubin, Total 0.8 mg/dL (0.2-1.0); CO2 29.5 mmol/L (21.0-32.0); CREATININE 0.8 mg/dL (0.55-1.02); Calcium 9.1 mg/dL (8.5-10.1); Chloride 104 mmol/L (98-107); Estimated GFR 74.44 (mL/min/1.73m2); Glucose 203 mg/dL (74-106); Magnesium 1.7 mg/dL (1.8-2.4); Potassium 3.7 mmol/L (3.5-5.1); Sodium 142 mmol/L (136-145); Total Protein 7.5 g/dL (6.4-8.2)
[2023-03-09] MEDS: Inhaler, Assist Device 1 EACH MC (12:26)
[2023-03-09] MEDS: Albuterol HFA 8 GM 60 PUFF INH IH (12:26)
--- NOTE | 2023-03-09 12:40 | DI.RAD_ITS ---
Exam(s) XR CHEST 2V PA LATERAL EXAM: XR CHEST 2V PA LATERAL CLINICAL HISTORY: Cough, SOB. TECHNIQUE: 2D digital imaging was performed. COMPARISON: CR CHEST 2 VIEWS PA,LAT from 03/13/2014 CR XR CHEST 2V PA LATERAL from 12/05/2019 FINDINGS: 2 views: Heart size is normal. The mediastinum is not widened. Right upper lobe scarring is unchanged from November 2019 No new infiltrates nor pleural effusions. No pulmonary edema. No pneumothorax. IMPRESSION: No acute pulmonary findings.Right upper lobe scarring unchanged. DATA REPOSITORY: RADIATION DOSE DELIVERED:
[2023-03-09 13:20] LABS: Troponin I < 50 ng/L (< or =60)
[2023-03-09 13:30] LABS: COVID-19 PCR Negative (Negative); Influenza A PCR Positive (Negative); Influenza B PCR Negative (Negative); RSV PCR Negative (Negative)
[2023-03-09 13:33] LABS: Source Nasopharynx
[2023-03-09] MEDS: Magnesium Oxide 400 MG TAB PO (14:15)
[2023-03-09 14:27] VITALS: BP 155/80; PULSE 58; TEMP 36.5; O2SAT 94
== END 2023-03-09 14:27 | disposition home or self-care (01) ==
PROVIDERS: Emergency Provider Registered Nurse Emergency; PCP Family Medicine
DX: J10.1 Influenza due to other identified influenza virus with other respiratory manifestations (principal); E83.42 Hypomagnesemia; E11.9 Type 2 diabetes mellitus without complications; I10 Essential (primary) hypertension; E78.5 Hyperlipidemia, unspecified; Z11.52 Encounter for screening for COVID-19
CPT/HCPCS: 80053; 85027; 87637; 93005; 99284; 71046; 83735; 84484; 93010

== ENCOUNTER 2023-06-20 05:10 | Outpatient (CLI) | payer MEDICARE, SELFPAY ==
[2023-06-20 13:23] LABS: Hemoglobin A1C 6.4 % (<5.7)
[2023-06-20 13:56] LABS: ALT 28 U/L (14-59); AST 18 U/L (15-37); Alkaline Phosphatase 67 U/L (46-116); Anion Gap 7.9 mmol/L (3-11); BUN 19 mg/dL (7-18); Bilirubin, Total 0.7 mg/dL (0.2-1.0); CO2 32.1 mmol/L (21.0-32.0); CREATININE 0.9 mg/dL (0.55-1.02); Calcium 9.5 mg/dL (8.5-10.1); Chloride 104 mmol/L (98-107); Estimated GFR 64.63 (mL/min/1.73m2); Glucose 181 mg/dL (74-106); Potassium 3.7 mmol/L (3.5-5.1); Sodium 144 mmol/L (136-145); Total Protein 6.7 g/dL (6.4-8.2)
== END 2023-06-20 05:11 | disposition home or self-care (01) ==
LOC: LBO 05:10
PROVIDERS: PCP Family Medicine; Visit Provider Family Medicine
DX: E11.9 Type 2 diabetes mellitus without complications (principal); I10 Essential (primary) hypertension
CPT/HCPCS: 36415; 80053; 82043; 82570; 83036

== ENCOUNTER 2023-11-20 02:02 | Outpatient (CLI) | payer MEDICARE, SELFPAY ==
--- NOTE | 2023-11-20 14:15 | DI.RAD_ITS ---
Exam(s) XR FOOT RT COMPLETE EXAM: XR FOOT RT COMPLETE CLINICAL HISTORY: Right foot pain,m79.671. TECHNIQUE: 2D digital imaging was performed of the right foot. Three images were obtained. AP, obl ique and lateral views were obtained. COMPARISON: No exams were available for comparison FINDINGS: BONES: No acute fracture is present. No bony destructive lesion is seen. There is a small plantar indy caneal spur. There is an enthesophyte at the posterior calcaneus. JOINTS: No dislocation present. There are marked degenerative changes seen at the 1st MTP joint eric cterized by joint space narrowing and osteophytes. SOFT TISSUE: Normal. IMPRESSION: Marked degenerative changes seen at the 1st MTP joint of the right foot. DATA REPOSITORY: RADIATION DOSE DELIVERED:
--- NOTE | 2023-11-20 14:16 | DI.RAD_ITS ---
Exam(s) XR FOOT LT COMPLETE EXAM: XR FOOT LT COMPLETE CLINICAL HISTORY: Left foot pain,m79.672. TECHNIQUE: 2D digital imaging was performed of the left foot. Three images were obtained. AP, obli que and lateral views were obtained. COMPARISON: No exams were available for comparison FINDINGS: BONES: No acute fracture is present. No bony destructive lesion is seen. Small enthesophyte is seen a t the posterior calcaneus. There is an accessory ossicle at the talonavicular joint. Second through 4th hammertoe deformities are noted. JOINTS: No dislocation present. Degenerative changes are seen in the foot particularly at the 1st MTP joint. SOFT TISSUE: Normal. IMPRESSION: Chronic changes of the left foot as described above. DATA REPOSITORY: RADIATION DOSE DELIVERED:
== END 2023-11-20 02:22 ==
LOC: DI 02:02
PROVIDERS: PCP Family Medicine; Visit Provider Podiatrist
DX: M19.071 Primary osteoarthritis, right ankle and foot (principal); M19.072 Primary osteoarthritis, left ankle and foot
CPT/HCPCS: 73630

== ENCOUNTER 2023-12-29 02:39 | Outpatient (CLI) | payer MEDICARE, SELFPAY ==
[2023-12-29 13:31] LABS: ALT 26 U/L (14-59); AST 20 U/L (15-37); Albumin 4.1 g/dL (3.4-5.0); Alkaline Phosphatase 69 U/L (46-116); Anion Gap 8.4 mmol/L (3-11); BUN 18 mg/dL (7-18); Bilirubin, Total 0.63 mg/dL (0.2-1.0); CO2 28.6 mmol/L (21.0-32.0); CREATININE 1.1 mg/dL (0.55-1.02); Calcium 9.7 mg/dL (8.5-10.1); Chloride 103 mmol/L (98-107); Estimated GFR 50.48 (mL/min/1.73m2); Glucose 190 mg/dL (74-106); Potassium 3.6 mmol/L (3.5-5.1); Sodium 140 mmol/L (136-145); Total Protein 7.5 g/dL (6.4-8.2); Vitamin B12 404 pg/mL (193-986)
[2023-12-29 13:33] LABS: Hemoglobin A1C 6.2 % (<5.7)
== END 2023-12-29 02:40 | disposition home or self-care (01) ==
LOC: LOS 02:39
PROVIDERS: PCP Family Medicine; Visit Provider Family Medicine
DX: I10 Essential (primary) hypertension; E11.9 Type 2 diabetes mellitus without complications
CPT/HCPCS: 36415; 80053; 82607; 83036

== ENCOUNTER 2024-01-02 18:23 | Outpatient (REF) | payer MEDICARE, SELFPAY ==
[2024-01-02 21:41] LABS: COMMENT (LAB VIEW ONLY) 109.62 mg/dL; Microalb ug/mg Crea 7.4 ug/mg Cr
== END 2024-01-02 18:24 | disposition home or self-care (01) ==
LOC: LBN 18:23
PROVIDERS: PCP Family Medicine; Visit Provider Family Medicine
DX: E11.9 Type 2 diabetes mellitus without complications (principal)
CPT/HCPCS: 82043; 82570

== ENCOUNTER 2024-12-16 09:12 | Outpatient (CLI) | payer MEDICARE, SELFPAY ==
[2024-12-16 14:20] LABS: ALT 32 U/L (14-59); AST 22 U/L (15-37); Albumin 3.7 g/dL (3.4-5.0); Alkaline Phosphatase 68 U/L (46-116); Anion Gap 7.6 mmol/L (3-11); BUN 19 mg/dL (7-18); Bilirubin, Total 0.8 mg/dL (0.2-1.0); CO2 29.4 mmol/L (21.0-32.0); Calcium 9.5 mg/dL (8.5-10.1); Chloride 101 mmol/L (98-107); Glucose 212 mg/dL (74-106); Potassium 4.2 mmol/L (3.5-5.1); Sodium 138 mmol/L (136-145); Total Protein 7.3 g/dL (6.4-8.2)
== END 2024-12-16 09:13 | disposition home or self-care (01) ==
LOC: LOS 09:12
PROVIDERS: PCP Family Medicine; Visit Provider Family Medicine
DX: I10 Essential (primary) hypertension (principal)
CPT/HCPCS: 36415; 80053

== ENCOUNTER 2024-12-16 14:36 | Outpatient (REF) | payer MEDICARE, SELFPAY ==
[2024-12-16 18:24] LABS: Microalb ug/mg Crea 33.1 ug/mg Cr
== END 2024-12-16 14:37 | disposition home or self-care (01) ==
LOC: LBN 14:36
PROVIDERS: PCP Family Medicine; Visit Provider Family Medicine
DX: E11.9 Type 2 diabetes mellitus without complications (principal)
CPT/HCPCS: 82043; 82570